=== PATIENT | male | born 1965 | race Caucasian/White ===

== ENCOUNTER → 2019-12-26 16:16 | Outpatient (BNVA) | payer SELFPAY | PROVIDERS: Family Provider Internal Medicine; Visit Provider Family Medicine | DX: E11.9 Type 2 diabetes mellitus without complications (principal); I10 Essential (primary) hypertension; Z68.35 Body mass index [BMI] 35.0-35.9, adult; F17.211 Nicotine dependence, cigarettes, in remission; Z71.89 Other specified counseling | CPT/HCPCS: 36416; 82962 ==

== ENCOUNTER 2021-05-18 09:58 | Outpatient (CLI) | payer OTHER, SELFPAY ==
[2021-05-18 10:37] LABS: Basophils # 0.1 10^3/uL (0.0-0.1); Basophils % 0.9 %; Eosinophils # 0.2 10^3/uL (0.0-0.8); Eosinophils % 2.8 %; Hematocrit 44.9 % (42.0-52.0); Hemoglobin 15.7 g/dL (11.7-16.6); Lymphocytes # 2.2 10^3/uL (0.8-4.8); Lymphocytes % 31.6 %; Mean Corpuscular Hemoglobin 30.8 pg (28.0-34.0); Mean Corpuscular Volume 88.2 fl (80-94); Mean Platelet Volume 9.1 fL (7.4-10.4); Monocytes # 0.5 10^3/uL (0.2-0.9); Monocytes % 6.6 %; Neutrophils # 3.94 10^3/uL (1.8-7.7); Nucleated Red Blood Cells % 0 %; Platelet Count 259 10^3/cmm (130-400); Red Blood Count 5.09 10^6/uL (4.1-5.3); White Blood Count 6.8 10^3/uL (4.0-10.0)
[2021-05-18 10:50] LABS: Estmated Average Glucose 280; Hemoglobin A1C 11.4 % (4.0-6.0)
[2021-05-18 10:54] LABS: Albumin Level 4.2 g/dL (3.5-5.2); Alkaline Phosphatase 66 IU/L (40-130); Blood Urea Nitrogen 19 mg/dL (6-20); Calcium 8.8 mg/dL (8.5-10.5); Carbon Dioxide 20 mmol/L (22-29); Chloride 91 mmol/L (98-107); Chol HDL Ratio 39.27 mg/dL (1.0-5.00); Cholesterol 589 mg/dL (0-200); Globulin 2.6 g/dL (1.3-4.6); Glomerular Filtration Rate 139.9 mL/min (90-130); Glucose 264 mg/dL (65-115); HDL Cholesterol 15 mg/dL (60-100); Osmolality Calculated 279 mOsm/kg (285-295); Sodium 129 mmol/L (136-145); Total Bilirubin 0.3 mg/dL (0.15-1.2); Total Protein 6.8 g/dL (6.6-8.7)
[2021-05-18 11:05] LABS: Anion Gap 22.6 (5-19); Potassium 4.6 mmol/L (3.5-5.1)
[2021-05-18 11:08] LABS: Triglycerides 3921 mg/dL (0-150)
[2021-05-18 11:10] LABS: Vitamin B12 697 pg/mL (232-1245)
[2021-05-18 11:14] LABS: Creatinine Urine, Random 33 mg/dL (39-259); Microalbum Creatinine Ratio Ur 91 mg/dL (0-20); Microalbumin Random Urine 3 ug/dL (0-20)
[2021-05-18 11:22] LABS: LDL Cholesterol Direct 58 mg/dL (0-100)
[2021-05-18 12:20] LABS: Alanine Aminotransferase 20 U/L (0-41)
[2021-05-18 12:28] LABS: Aspartate Amino Transferase 13 U/L (0-40)
== END 2021-05-18 09:59 | disposition home or self-care (01) ==
PROVIDERS: PCP Family Medicine; Visit Provider Family Medicine
DX: Z00.00 Encounter for general adult medical examination without abnormal findings (principal); I10 Essential (primary) hypertension; E11.9 Type 2 diabetes mellitus without complications
CPT/HCPCS: 36415; 80053; 80061; 82044; 82607; 83036; 83721; 85025

== ENCOUNTER 2021-05-28 07:56 | Outpatient (CLI) | payer OTHER, SELFPAY ==
[2021-05-28 09:45] LABS: Follicle Stimulating Hormone 5.8 mIU/mL (1.5-12.4); Luteinizing Hormone 5.4 mIU/mL (1.7-8.6); Prolactin 11.04 ng/mL (4.0-15.2); Prostate Specific Antigen 0.245 ng/mL (0-4)
[2021-05-28 10:14] LABS: Testosterone Total 110.7 ng/dL (193-740)
[2021-05-31 18:32] LABS: Testosterone, Free 48.2 pg/mL (46.0-224.0)
== END 2021-05-28 07:57 | disposition home or self-care (01) ==
LOC: LAB 08:03
PROVIDERS: PCP Family Medicine; Visit Provider Internal Medicine
DX: E11.65 Type 2 diabetes mellitus with hyperglycemia (principal); E78.1 Pure hyperglyceridemia; N52.9 Male erectile dysfunction, unspecified; Z12.5 Encounter for screening for malignant neoplasm of prostate
CPT/HCPCS: 36415; 83001; 83002; 84146; 84153; 84402; 84403

== ENCOUNTER 2021-10-01 16:16 | Outpatient (CLI) | payer OTHER, SELFPAY ==
--- NOTE | 2021-10-01 16:47 | XRR_ITS ---
PROCEDURE INFORMATION: Exam: XR Thoracolumbar Spine Exam date and time: 10/01/2021 4:59 PM Age: 56 years old Clinical indication: Patient HX: Chronic mid back pain no known trauma; Additional info: Thoracolulmbar radiculopathy TECHNIQUE: Imaging protocol: XR of the thoracolumbar spine. Views: 2 views. COMPARISON: CT abdomen pelvis w con* [id number] 04/01/2017 9:45 AM FINDINGS: Bones/joints: AP and lateral radiographs of the lumbosacral spine showing T6-L3 or obtain. Chronic degenerative changes are present in the lower thoracic spine with disc space narrowing and osteophytes. No fracture, dislocation or other acute abnormality. There is no malalignment. Soft tissues: Unremarkable. 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 No acute abnormality.
[2021-10-01 22:50] LABS: Cortisol Random 5.32 ug/dL (2.47-19.5)
[2021-10-01 22:53] LABS: Free T4 Free Thyroxine 1.02 ng/dL (0.82-1.77); Testosterone Total 156.8 ng/dL (193-740)
== END 2021-10-01 16:17 | disposition home or self-care (01) ==
PROVIDERS: Internal Medicine; PCP Family Medicine; Visit Provider Family Medicine
DX: R10.9 Unspecified abdominal pain (principal); N52.9 Male erectile dysfunction, unspecified; E78.1 Pure hyperglyceridemia; Z12.5 Encounter for screening for malignant neoplasm of prostate; M54.15 Radiculopathy, thoracolumbar region
CPT/HCPCS: 72080; 80053; 82533; 83690; 84403; 84439

== ENCOUNTER 2021-10-12 08:25 | Outpatient (CLI) | payer OTHER, SELFPAY ==
[2021-10-12 09:19] LABS: Chol HDL Ratio 10.78 mg/dL (1.0-5.00); Cholesterol 248 mg/dL (0-200); HDL Cholesterol 23 mg/dL (60-100)
[2021-10-12 09:21] LABS: Estmated Average Glucose 272; Hemoglobin A1C 11.1 % (4.0-6.0)
[2021-10-12 09:42] LABS: Triglycerides 1973 mg/dL (0-150)
[2021-10-12 09:56] LABS: LDL Cholesterol Direct 40 mg/dL (0-100)
== END 2021-10-12 08:26 | disposition home or self-care (01) ==
PROVIDERS: PCP Family Medicine; Visit Provider Internal Medicine
DX: E11.65 Type 2 diabetes mellitus with hyperglycemia (principal); E78.1 Pure hyperglyceridemia
CPT/HCPCS: 36415; 80061; 83036; 83721

== ENCOUNTER 2021-11-28 13:41 | Outpatient (CLI) | payer OTHER, SELFPAY ==
--- NOTE | 2021-11-28 13:45 | MR_ITS ---
WS: [id number] MRI THORACIC SPINE WITHOUT CONTRAST TECHNIQUE: Sagittal T1, T2 and STIR imaging. Axial T2 imaging. Noncontrast imaging obtained. CLINICAL INFORMATION: M51.9 - Unspecified thoracic, thoracolumbar and lumbosacr... COMPARISON: None. FINDINGS: Mild thoracic curve. Mild thoracic kyphosis. No acute compression fractures. No high-grade central ca nal stenosis. Cord signal is normal. Adrenal glands are normal. Normal caliber thoracic aorta. Normal GE junction. Disc herniation T1-T2 with slight contact of the thoracic cord. Slight cranial and caudal subligament ous migration of disc material. Shallow central protrusion T2-T3 with slight contact of the thoracic cord. Spinal canal is patent. Additional tiny shallow central protrusions at T5-T6 and T11-T12 without significant central canal st enosis. Moderate facet arthropathy in the lower thoracic spine. Mild bilateral bony foraminal narrowi ng T10-T11, LEFT T11-T12. MR/MR thoracic spin wo con* [id number] IMPRESSION: 1. Mild thoracic kyphosis. Mild thoracic curve. No acute compression fractures . 2. No high-grade central canal stenosis. Cord signal is normal. 3. Moderate facet arthropathy lower thoracic spine. 4. Small disc protrusions T1-T2, T2-T3, T5-T6, and T11-T12. Slight subligament ous migration of disc material at T1-T2. 5. Mild bony foraminal narrowing more prominent at bilateral T10-T11, and LEFT T11-T12.
== END 2021-11-28 13:42 | disposition home or self-care (01) ==
LOC: RAD 13:41
PROVIDERS: PCP Family Medicine; Visit Provider Anesthesiology Pain Medicine
DX: M51.9 Unspecified thoracic, thoracolumbar and lumbosacral intervertebral disc disorder (principal)
CPT/HCPCS: 72146

== ENCOUNTER → 2022-02-21 09:47 | Outpatient (BNVA) | payer OTHER, SELFPAY | PROVIDERS: PCP Family Medicine; Visit Provider Family Medicine | DX: Z51.81 Encounter for therapeutic drug level monitoring (principal); R79.89 Other specified abnormal findings of blood chemistry; Z23 Encounter for immunization; Z12.5 Encounter for screening for malignant neoplasm of prostate; E78.1 Pure hyperglyceridemia; E11.65 Type 2 diabetes mellitus with hyperglycemia; I10 Essential (primary) hypertension | CPT/HCPCS: 80053; 80061; 83036; 83721; 84403; 85025 ==

== ENCOUNTER → 2022-03-10 13:56 | Outpatient (BNVA) | payer OTHER, SELFPAY | PROVIDERS: PCP Family Medicine; Visit Provider Family Medicine | DX: R05.9 Cough, unspecified (principal); J06.9 Acute upper respiratory infection, unspecified; I10 Essential (primary) hypertension | CPT/HCPCS: 87400; 87426 ==

== ENCOUNTER → 2022-06-17 13:12 | Outpatient (BNVA) | payer OTHER, SELFPAY | PROVIDERS: PCP Family Medicine; Visit Provider Family Medicine | DX: R51.9 Headache, unspecified (principal); J06.9 Acute upper respiratory infection, unspecified | CPT/HCPCS: 87426 ==

== ENCOUNTER 2022-07-04 14:03 | Outpatient (CLI) | payer OTHER, SELFPAY ==
--- NOTE | 2022-07-04 14:30 | MR_ITS ---
WS: [id number] MRI BRAIN/orbits WITH AND WITHOUT CONTRAST HISTORY: Abducens nerve palsy, balance problems - likely stroke COMPARISON: None available. TECHNIQUE: Multiplanar imaging performed through the brain with MultiHance ml's IV. Very small diffusion-weighted abnormality involving the RIGHT owens radiata. Suspect subacute stroke . There is no hemorrhage or mass effect. Otherwise mild small vessel ischemic changes throughout whit e matter. No cerebellar stroke. The marquis is negative. No hemorrhage. Ventricles and extra-axial spaces are normal. Clivus and pituitary gland are normal. Visualized posterior fossa and brainstem are also normal. Postcontrast images are negative for masses or vascular malformations. On the postcontrast sequences there is a small amount of enhancement noted in the RIGHT owens radiata extending along the internal capsule. This corresponds to the diffusion-weighted abnormality. Dural venous sinuses are normal. Paranasal sinuses: Well aerated with no significant disease. Mastoid air cells: Normal. Calvarium and scalp: Normal. MR/MR head orbits wo/w* [id number] IMPRESSION: 1. Small diffusion-weighted abnormality without hemorrhage in the RIGHT owens radiata consistent with a subacute infarct. Mild enhancement at the site of th e diffusion abnormality. Recommend follow-up MRI brain in 6-[address] to document resolution of the enhancement. 2. Mild small vessel chronic ischemic disease. 3. No enhancement along the course of the 6th cranial nerve.
[2022-07-04] MEDS: gadobenate dimeglumine 20 mL vial IV (17:24)
== END 2022-07-04 14:04 | disposition home or self-care (01) ==
PROVIDERS: PCP Family Medicine; Visit Provider Family Medicine
DX: H49.20 Sixth [abducent] nerve palsy, unspecified eye (principal); R26.9 Unspecified abnormalities of gait and mobility; I67.82 Cerebral ischemia
CPT/HCPCS: 70543; 70553; 80053; 83036; 84153; 84439; 84443; 85025; A9577

== ENCOUNTER 2022-08-01 15:13 | Outpatient (CLI) | payer OTHER, SELFPAY ==
--- NOTE | 2022-08-01 15:45 | USCV_ITS ---
Humza Juarez Age: 57 Gender: M : 1965 Exam Date: 08/01/2022 15:30 Ordering Phys: Patrick Martinez MD Technologist: Mojgan Shine Exam Location: [facility] – [place] Indication: s/p ischemic stroke BP: 140 / 80 HR: 82 Rhythm: Sinus Technical Quality: Adequate MEASUREMENTS (Male / Female) Normal Values 2D ECHO LV Diastolic Diameter PLAX 4.1 cm 4.2 - 5.9 / 3.9 - 5.3 cm LV Systolic Diameter PLAX 1.8 cm IVS Diastolic Thickness 1.9 cm 0.6 - 1.0 / 0.6 - 0.9 cm IVS Systolic Thickness 2.2 cm LVPW Diastolic Thickness 1.5 cm 0.6 - 1.0 / 0.6 - 0.9 cm LVPW Systolic Thickness 2.6 cm LVOT Diameter 2.2 cm LV Ejection Fraction 2D Teich 64.7 % LV Ejection Fraction MOD 2C 67.3 % LV Ejection Fraction 2C AL 68.7 % LA Diameter 4.0 cm LA Width 3.4 cm LA Height 5.5 cm RA Width 3.9 cm RA Height 4.6 cm Aorta at Sinotubular Diameter 3.0 cm IVC Diameter 1.3 cm M-MODE MV E Point Septal Separation 0.5 cm DOPPLER AV Peak Velocity 151.0 cm/s LVOT Peak Velocity 107.0 cm/s AV Area Cont Eq vti 2.8 cm squared AV Area Cont Eq pk 2.6 cm squared MV Peak Velocity 115.0 cm/s MV Area PHT 3.9 cm squared Mitral E to A Ratio 1.0 MV E' Velocity 57.5 cm/s Mitral E to MV E' Ratio 16.6 Mitral E to LV E' Lateral Ratio 14.6 Mitral E to LV E' Septal Ratio 19.3 TR Peak Velocity 98.7 cm/s TR Peak Gradient 3.9 mmHg Right Atrial Pressure 5.0 mmHg Pulmonary Artery Systolic Pressu 8.9 mmHg PV Peak Velocity 118.0 cm/s RV Acceleration Time 0.1 s RV Ejection Time 0.3 s RV AcT/ET 0.3 FINDINGS Left Ventricle Left ventricle is normal in size. LV systolic function is normal with EF of 55 to 60%. No regional wall motion normalities are seen. Right Ventricle Normal in size and function Right Atrium Normal in size Left Atrium Normal in size Mitral Valve Mild mitral annular calcification. Trace mitral regurgitation. Aortic Valve Structurally normal aortic valve.No significant stenosis or regurgitation. Tricuspid Valve Mild tricuspid regurgitation. Pulmonary artery systolic pressure is normal. Pulmonic Valve Not well visualized Pericardium Normal Aorta Normal in size IVC Appears to be normal CONCLUSIONS LV systolic function is normal with EF of 55-60% Trace mitral regurgitation Mild tricuspid regurgitation No comparison studies are available Kwaku Robledo MD (Electronically Signed) Final Date: 03 August 2022 18:04 S
--- NOTE | 2022-08-01 16:00 | USCV_ITS ---
Humza Juarez Age: 57 Gender: M : 1965 Exam Date: 08/01/2022 15:57 Ordering Phys: Patrick Martinez MD Technologist: Mojgan Shine Exam Location: [facility] – [place] Indication: s/p ischemic stroke Risk Factors: Previous Vascular Surgery: None Right Brachial BP: / Left Brachial BP: / Right Left Velocity (cm/s) Spectral Plaque Velocity (cm/s) Spectral Plaque Syst/Diast Broadening Syst/Diast Broadening 113.60/16.50 Prox CCA 115.70/ 17.10 102.50/12.10 Mid CCA 87.10 / 16.50 102.50/20.90 Distal CCA 101.40/ 16.50 52.80/ 9.30 Prox ICA 52.80 / 9.30 Homo 75.20/ 24.80 Mid ICA 63.90 / 18.70 Homo 85.40/ 24.80 Distal ICA 55.90 / 15.50 118.00 ECA 94.80 Homo 0.75 ICA/CCA 0.55 Antegrade Vertebral Antegrade 47.30/ 9.90 cm/s 38.80/ 12.50 cm/s Tri Subclavian Tri 144.6 114.6 0 0 FINDINGS Comparison: none available. Technically limited exam. No significant elevation of systolic or diastolic velocities. Waveforms are normal. Antegrade vertebral arteries. Mild carotid atherosclerosis. CONCLUSIONS Bilateral ICA stenosis less than 50%. Dr. Tami Solorzano DO (Electronically Signed) Final Date: 04 August 2022 07:44 S
== END 2022-08-01 15:14 | disposition home or self-care (01) ==
PROVIDERS: PCP Family Medicine; Visit Provider Family Medicine
DX: I63.9 Cerebral infarction, unspecified (principal); I65.23 Occlusion and stenosis of bilateral carotid arteries
CPT/HCPCS: 93306; 93880

== ENCOUNTER 2022-08-19 15:33 | Outpatient (RCR) | payer OTHER, SELFPAY | END 2022-08-29 23:59 | disposition home or self-care (01) | LOC: SOT 15:33 | PROVIDERS: PCP Family Medicine; Visit Provider Family Medicine | DX: I63.9 Cerebral infarction, unspecified (principal); R42 Dizziness and giddiness | CPT/HCPCS: 97165 ==

== ENCOUNTER 2022-08-26 15:33 | Outpatient (RCR) | payer OTHER, SELFPAY | END 2022-08-29 23:59 | disposition home or self-care (01) | LOC: SPT 15:33 | PROVIDERS: PCP Family Medicine; Visit Provider Family Medicine | DX: I63.9 Cerebral infarction, unspecified (principal); R42 Dizziness and giddiness | CPT/HCPCS: 97112; 97161 ==

== ENCOUNTER 2022-08-30 06:00 | Outpatient (RCR) | payer OTHER, SELFPAY | END 2022-09-28 23:59 | disposition home or self-care (01) | LOC: SPT 06:00 | PROVIDERS: PCP Family Medicine; Visit Provider Family Medicine | DX: I63.9 Cerebral infarction, unspecified (principal); R42 Dizziness and giddiness | CPT/HCPCS: 97110; 97112 ==

== ENCOUNTER 2022-09-15 10:33 | Outpatient (CLI) | payer OTHER, SELFPAY ==
--- NOTE | 2022-09-15 11:00 | MR_ITS ---
WS: [id number] MRI HEAD WITH CONTRAST TECHNIQUE: Sagittal T1, T2 axial, T2 axial FLAIR, axial susceptibility weighted imaging, axial diffus ion weighted images, and coronal T2 images were obtained. Pre and post-T1 axial and post T1 coronal i mages. ADC and FSPGR images. CLINICAL INFORMATION: Enhancing lesion in right owesn radiata COMPARISON: July 04, 2022 FINDINGS: No evidence of restricted diffusion to suggest acute ischemia. Late subacute to chronic lacunar infar ct in the RIGHT owens radiata with T1 hyperintensity compatible with laminar necrosis. No residual a bnormal enhancement. Expected evolution of the infarct. No new areas of acute ischemia. No hemosiderin on the susceptibly weighted images. Normal posterior fossa. Normal vascular flow voids at the skull base. No extra-axial fluid collections. Paranasal sinuses and mastoid air cells are wel l aerated. Mild symmetric atrophy temporal lobes and hippocampal formations. Normal optic chiasm and pituitary infundibulum. MR/MR head wo/w con [id number] IMPRESSION: 1. Expected evolution of the RIGHT owens radiata lacunar infarct with T1 hype rintensity compatible with laminar necrosis. Previously described enhancement h as resolved. 2. No evidence restricted diffusion to suggest acute ischemia. 3. Mild small vessel changes with mild parenchymal volume loss. 4. No hemosiderin on susceptibly weighted images. 5. Mild symmetric atrophy temporal lobes and hippocampal formations.
[2022-09-15] MEDS: gadobenate dimeglumine 20 mL vial IV (11:42)
== END 2022-09-15 10:34 | disposition home or self-care (01) ==
PROVIDERS: PCP Family Medicine; Visit Provider Family Medicine
DX: I63.9 Cerebral infarction, unspecified (principal)
CPT/HCPCS: 70553; A9577

== ENCOUNTER 2022-09-29 06:00 | Outpatient (RCR) | payer OTHER, SELFPAY | END 2022-10-29 23:59 | disposition home or self-care (01) | LOC: SPT 06:00 | PROVIDERS: PCP Family Medicine; Visit Provider Family Medicine | DX: I63.9 Cerebral infarction, unspecified (principal); R42 Dizziness and giddiness | CPT/HCPCS: 97110; 97112; L1902 ==

== ENCOUNTER 2022-10-30 06:00 | Outpatient (RCR) | payer OTHER, SELFPAY | END 2022-11-28 23:59 | disposition home or self-care (01) | LOC: SPT 06:00 | PROVIDERS: PCP Family Medicine; Visit Provider Family Medicine | DX: I63.9 Cerebral infarction, unspecified (principal); R42 Dizziness and giddiness | CPT/HCPCS: 97110; 97112 ==

== ENCOUNTER 2022-11-29 06:00 | Outpatient (RCR) | payer OTHER, SELFPAY | END 2022-12-04 23:59 | disposition home or self-care (01) | LOC: SPT 06:00 | PROVIDERS: PCP Family Medicine; Visit Provider Family Medicine | DX: I63.9 Cerebral infarction, unspecified (principal); R42 Dizziness and giddiness | CPT/HCPCS: 97110; 97112 ==

== ENCOUNTER → 2022-12-26 07:57 | Outpatient (BNVA) | payer OTHER, SELFPAY | PROVIDERS: PCP Family Medicine; Visit Provider Family Medicine | DX: Z12.5 Encounter for screening for malignant neoplasm of prostate (principal); N52.9 Male erectile dysfunction, unspecified; E11.40 Type 2 diabetes mellitus with diabetic neuropathy, unspecified; E78.1 Pure hyperglyceridemia; E11.65 Type 2 diabetes mellitus with hyperglycemia; R79.89 Other specified abnormal findings of blood chemistry | CPT/HCPCS: 80053; 80061; 83036; 84403 ==

== ENCOUNTER → 2023-03-19 13:31 | Outpatient (BNVA) | payer OTHER, SELFPAY | PROVIDERS: PCP Family Medicine; Visit Provider Podiatrist Foot & Ankle Surgery | DX: S99.921A Unspecified injury of right foot, initial encounter; S92.424A Nondisplaced fracture of distal phalanx of right great toe, initial encounter for closed fracture; E11.65 Type 2 diabetes mellitus with hyperglycemia; Z79.4 Long term (current) use of insulin; Z79.84 Long term (current) use of oral hypoglycemic drugs; X58.XXXA Exposure to other specified factors, initial encounter | CPT/HCPCS: 73630 ==

== ENCOUNTER → 2023-04-01 15:56 | Outpatient (BNVA) | payer OTHER, SELFPAY | PROVIDERS: PCP Family Medicine; Visit Provider Podiatrist Foot & Ankle Surgery | DX: X58.XXXD Exposure to other specified factors, subsequent encounter; E11.65 Type 2 diabetes mellitus with hyperglycemia; Z79.4 Long term (current) use of insulin; Z79.84 Long term (current) use of oral hypoglycemic drugs; S92.424D Nondisplaced fracture of distal phalanx of right great toe, subsequent encounter for fracture with routine healing | CPT/HCPCS: 73630 ==

== ENCOUNTER 2023-09-11 12:26 | Outpatient (CLI) | payer OTHER, SELFPAY ==
--- NOTE | 2023-09-11 12:30 | XR_ITS ---
WS: [id number] Lumbar spine, 3 views, 09/11/2023 Clinical Data: Left hip, lower back pain Comparison: None. Findings: No compression fractures or subluxation is seen. There is degenerative disc narrowing at L5-S1. There are minimal spurs of the L4 and L5 vertebral bodies. The transverse processes and SI joints are nor mal. Impression: 1. Degenerative disc narrowing at L5-S1. 2. Minimal spurs of the L4 and L5 vertebral bodies.
--- NOTE | 2023-09-11 12:30 | XR_ITS ---
WS: [id number] Left hip, AP and frog-leg views, 09/11/2023 Clinical Data: Left hip, lower back pain Comparison: None. Findings: No fractures or dislocations are seen. The left hip shows no erosion, sclerosis, narrowing, fragmenta tion or loss of the normal spherical shape of the femoral head.. The soft tissues are not remarkable. The adjacent pelvis is normal. Impression: Negative left hip. Tonnis classification: grade 0: normal radiographs
== END 2023-09-11 12:27 | disposition home or self-care (01) ==
LOC: RAD 12:27
PROVIDERS: PCP Family Medicine; Visit Provider Family Medicine
DX: M54.16 Radiculopathy, lumbar region (principal); M25.552 Pain in left hip; M51.37 Other intervertebral disc degeneration, lumbosacral region; M46.07 Spinal enthesopathy, lumbosacral region
CPT/HCPCS: 72100; 73502

== ENCOUNTER → 2023-10-15 07:17 | Outpatient (BNVA) | payer OTHER, SELFPAY | PROVIDERS: PCP Family Medicine; Visit Provider Internal Medicine | DX: R79.89 Other specified abnormal findings of blood chemistry (principal); E11.65 Type 2 diabetes mellitus with hyperglycemia; E78.1 Pure hyperglyceridemia; Z51.81 Encounter for therapeutic drug level monitoring; E11.9 Type 2 diabetes mellitus without complications; Z13.220 Encounter for screening for lipoid disorders; E55.9 Vitamin D deficiency, unspecified; E03.9 Hypothyroidism, unspecified; E53.8 Deficiency of other specified B group vitamins | CPT/HCPCS: 80053; 80061; 82306; 82607; 83036; 83721; 84403; 84439; 84443; 85025; G0103 ==

== ENCOUNTER 2024-02-08 16:09 | Outpatient (CLI) | payer OTHER, SELFPAY | END 2024-02-08 16:10 | disposition home or self-care (01) | LOC: SLEEP 16:10 | PROVIDERS: PCP Family Medicine; Visit Provider Family Medicine | DX: G47.33 Obstructive sleep apnea (adult) (pediatric) (principal); G47.36 Sleep related hypoventilation in conditions classified elsewhere | CPT/HCPCS: G0399 ==

== ENCOUNTER → 2024-02-26 07:38 | Outpatient (BNVA) | payer OTHER, SELFPAY | PROVIDERS: PCP Family Medicine; Visit Provider Family Medicine | DX: Z51.81 Encounter for therapeutic drug level monitoring (principal); Z13.220 Encounter for screening for lipoid disorders; E11.9 Type 2 diabetes mellitus without complications; I10 Essential (primary) hypertension; R60.9 Edema, unspecified; E53.8 Deficiency of other specified B group vitamins | CPT/HCPCS: 80053; 80061; 82306; 82607; 83036; 83721; 83735; 83880; 85025 ==

== ENCOUNTER 2024-05-02 06:41 | Outpatient (CLI) | payer OTHER, SELFPAY ==
[2024-05-02 07:16] VITALS: BMI 42.7
--- NOTE | 2024-05-02 07:16 | ECG_ITS ---
[employer] Test Date: 2024-05-02 Pat Name: Humza Juarez Department: Room: Gender: Male Fox Raiser: : 1965 Requested By: Patrick Jackson Order Number: [id number] Alvarado MD: Kwaku Robledo M.D. Interpretive Statements LEXISCAN SESTAMIBI STRESS TEST Procedure: At the baseline, the blood pressure was 153/93 mmHg with a heart rate of 67 bpm. The electrocardiogram showed normal sinus rhythm, normal axis with normal ST and T's. The Lexiscan was infused over a period of 20 seconds. A total of 0.4 mg of Lexiscan was infused. The stress phase was continued for a total of 5 minutes. Heart rate was at the end of stress phase was 69 bpm and a blood pressure of 134/81 mmHg. The EKG at the peak infusion revealed normal sinus rhythm with no significant ST-T wave changes. Sestamibi was injected 20 seconds after the Lexiscan infusion. Blood pressure at the end of recovery phase was 131/77 mmHg with a heart rate of 69 bpm. Conclusion: 1. Normal EKG response to Lexiscan infusion 2. No Lexiscan induced chest pain or cardiac arrhythmia. 3. Normal blood pressure and heart rate response. 4. Sestamibi/sestamibi perfusion scan pending; see separate report. Electronically Signed On 05-04-2024 19:37:44 SHUTTLE THREADER by Kwaku Robledo M.D. [email or web address]
--- NOTE | 2024-05-02 07:17 | NMCV_ITS ---
NM jania perf SPECT r/s* [id number] Humza Juarez Age: 59 Gender: M : 1965 Exam Date: 05/02/2024 07:17 Ordering Phys: Patrick Martinez MD Technologist: ALEJANDRO Amado Exam Location: [facility] Indications: cp STRESS TEST Please see separate stress test report in [facility] for full findings IMAGE PROTOCOL Rest/Stress 1 Lexiscan Day Radiopharmaceutical Dose (mCi) Administration Site Administered by Rest: Tc-99m 11 IV ALEJANDRO Greene Sestamibi Stress:Tc-99m 33 IV ALEJANDRO Greene Sestamibi Rest: 02-May-2024 60 Discovery 630 Stress: 02-May-2024 30 Discovery 630 0.4mg Lexiscan. Supine position only as patient was unable to lay prone. SPECT RESULTS Technical Quality: Good Raw Data Analysis: , Normal Image Corrections: No attenuation or motion correction applied Summed Stress Score: 1 Summed Rest Score: 0 Summed Difference Score: 1 PERFUSION FINDINGS There is small area of partially reversible perfusion defect seen in inferolateral wall. This is consistent with small area of prior infarct with minimal lizzie-infarct ischemia. FUNCTIONAL RESULTS (calculated via Gated SPECT) Stress Image LV EF (%): 68 Stress EDV (mL):137 TID: 1.21 Stress ESV (mL):44 FUNCTIONAL FINDINGS: There is normal left ventricular systolic function. TID ratio is elevated and is 1.21 IMPRESSIONS 1. Small area of prior infarct with minimal lizzie-infarct ischemia seen in the left circumflex artery territory 2. LV systolic function is normal 3. TID ratio is elevated. Kwaku Robledo MD (Electronically Signed) Final Date: 02 May 2024 09:43 S
[2024-05-02] MEDS: regadenoson 0.4 Mg/5 ml Syringe IVP (08:32)
[2024-05-02 08:43] VITALS: BP 131/77; PULSE 69
== END 2024-05-02 06:42 | disposition home or self-care (01) ==
LOC: CDL 06:42
PROVIDERS: PCP Family Medicine; Visit Provider Family Medicine
DX: R07.9 Chest pain, unspecified (principal); R06.02 Shortness of breath
CPT/HCPCS: 36415; 78452; 93017; 96374; A9500; J2785

== ENCOUNTER 2024-06-07 06:28 | Outpatient (CLI) | payer OTHER, SELFPAY ==
--- NOTE | 2024-06-07 06:15 | USCV_ITS ---
Humza Juarez Age: 59 Gender: M : 1965 Exam Date: 06/07/2024 06:41 Ordering Phys: Edy White MD ([email or web address]) Technologist: MIHAI Exam Location: [facility] [place] Indication: SOB BP: 142 / 91 HR: 83 Rhythm: Sinus Technical Quality: Adequate MEASUREMENTS (Male / Female) Normal Values 2D ECHO LV Diastolic Diameter PLAX 4.8 cm 4.2 - 5.9 / 3.9 - 5.3 cm IVS Diastolic Thickness 1.6 cm 0.6 - 1.0 / 0.6 - 0.9 cm IVS Systolic Thickness 2.3 cm LVPW Diastolic Thickness 2.4 cm 0.6 - 1.0 / 0.6 - 0.9 cm LVPW Systolic Thickness 2.5 cm LVOT Diameter 2.0 cm LV Ejection Fraction 2D Teich 66.4 % LV Ejection Fraction MOD 4C 66.1 % LV Ejection Fraction MOD 2C 63.7 % LV Ejection Fraction 2C AL 65.3 % LA Diameter 5.2 cm RA Systolic Volume 4C AL 19.4 ml RA Systolic Volume 4C MOD 19.3 ml LA Sys Volume AL 53.7 cm cubed LA Sys Volume Index AL 17.7 cm cubed/m squared Aorta at Sinotubular Diameter 2.9 cm M-MODE LA Ao Ratio MM 1.2 AV Cusp Separation MM 1.4 cm DOPPLER AV Peak Velocity 158.0 cm/s LVOT Peak Velocity 114.0 cm/s AV Area Cont Eq vti 2.1 cm squared AV Area Cont Eq pk 2.3 cm squared MV Peak Velocity 115.0 cm/s MV Area PHT 2.8 cm squared TR Peak Velocity 125.0 cm/s TR Peak Gradient 6.3 mmHg TR Mean Velocity 101.0 cm/s TR Mean Gradient 4.5 mmHg TR Velocity Time Integral 31.7 cm TV Peak E Velocity 77.0 cm/s PV Peak Velocity 122.0 cm/s RV Ejection Time 0.3 s FINDINGS Left Ventricle Left ventricle is normal in size. LV systolic function is normal with EF of 60 to 65%. No regional wall motion abnormalities are seen. Left ventricular hypertrophy seen. Right Ventricle Normal in size and function Right Atrium Normal in size Left Atrium Normal in size Mitral Valve Structurally normal mitral valve. Trace mitral regurgitation. Aortic Valve Normal aortic valve. No significant stenosis or regurgitation. Tricuspid Valve Insufficient TR jet to calculate RVSP Pulmonic Valve Not well visualized Pericardium Normal Aorta Normal in size IVC Not well visualized. CONCLUSIONS LV systolic function is normal with EF of 60 to 65%. Left ventricular hypertrophy is seen. Trace mitral regurgitation Compared to prior echocardiogram from 2022, no significant changes are seen. Kwaku Robledo MD (Electronically Signed) Final Date: 10 June 2024 12:07 S
== END 2024-06-07 06:29 | disposition home or self-care (01) ==
PROVIDERS: PCP Family Medicine; Visit Provider Internal Medicine Cardiovascular Disease
DX: I51.7 Cardiomegaly (principal); R06.02 Shortness of breath
CPT/HCPCS: 93306

== ENCOUNTER 2024-08-18 09:43 | Outpatient (CLI) | payer OTHER, SELFPAY ==
--- NOTE | 2024-08-18 09:30 | USR_ITS ---
PROCEDURE INFORMATION: Exam: US Bilateral Noninvasive Physiologic Study of the Lower Extremity Arteries, Limited Exam date and time: 08/18/2024 9:47 AM Age: 59 years old Clinical indication: Condition or disease; Peripheral vascular disease; Additional info: Decreased pulses in bilateral feet TECHNIQUE: Imaging protocol: Bilateral Limited bilateral noninvasive physiologic studies of lower extremity arteries. Waveforms were obtained and evaluated. Images were documented and archived. Exam is limited. COMPARISON: CR XR foot RT min 3V* [id number] 04/01/2023 4:03 PM FINDINGS: Ankle-brachial index on the right measures 1.02. Ankle-brachial index on the left is not calculated due to noncompressible vessels. Toe brachial index on the right measures 0.78. Toe brachial index on the left measures 0.76. Waveforms were not assessed in the study. US/CV ankle brachial index [id number] IMPRESSION: 1. Ankle-brachial index of 1.02 on the right, which is within normal limits. 2. Ankle-brachial index on the left is not assessed due to non compressibility of the vessels. 3. Toe brachial index within normal limits bilaterally.
== END 2024-08-18 09:44 | disposition home or self-care (01) ==
LOC: RAD 09:45
PROVIDERS: PCP Family Medicine; Visit Provider Family Medicine
DX: I73.9 Peripheral vascular disease, unspecified (principal); Z00.00 Encounter for general adult medical examination without abnormal findings; E11.40 Type 2 diabetes mellitus with diabetic neuropathy, unspecified; Z12.5 Encounter for screening for malignant neoplasm of prostate; R93.89 Abnormal findings on diagnostic imaging of other specified body structures
CPT/HCPCS: 93922

== ENCOUNTER 2024-09-01 19:57 | Emergency (ER) | payer OTHER, SELFPAY ==
[2024-09-01] VITALS (9 sets, daily range): BP systolic 127–170; BP diastolic 63–94; PULSE 80–95; RESP 14–24; TEMP 36.3; O2SAT 88–99; BMI 39.1
--- NOTE | 2024-09-01 20:08 | XRR_ITS ---
PROCEDURE INFORMATION: Exam: XR Abdomen Exam date and time: 09/01/2024 8:24 PM Age: 59 years old Clinical indication: Abdominal pain; Acute; Additional info: Abd pain TECHNIQUE: Imaging protocol: Radiologic exam of the abdomen. Views: Frontal supine view of the abdomen. 1 View. COMPARISON: CR XR hip LT 2-3V wo/w pel* [id number] 09/11/2023 12:43 PM FINDINGS: Gastrointestinal tract: Large colonic and rectal stool burden. Gaseous distension of transverse colon. Nonobstructive bowel gas pattern. Bones/joints: Unremarkable. XR/XR abdomen 1V* [id number] IMPRESSION: Extensive distal colonic and rectal stool burden, which may be seen with constipation and rectal impaction.
[2024-09-01 20:15] LABS: Glucose Point of Care > 600 mg/dL (70-110)
--- NOTE | 2024-09-01 21:06 | W.ED.RECABL ---
HPI - Recheck/Abnormal Lab/Rx General: Chief Complaint: Recheck/Abnormal Lab/Rx Stated Complaint: v/ clammy severe stomach pain . sudden Time Seen by Provider: 09/01/24 20:42 History of Present Illness: 59-year-old man with a history of uncontrolled type 2 diabetes mellitus, hypertension, obesity, history of a stroke, hyperlipidemia and chronic pain syndrome who presents the emergency room with epigastric abdominal pain, nausea and vomiting. He said he got very clammy and sweaty. He has been vomiting. Upon arrival here he has some diarrhea. No altered mental status. No focal motor deficits. Family states his mother just a couple of days ago. They were concerned he might be having heart attack. Related Data Home Medications ?Medication ?Instructions ?Recorded ?Confirmed cholecalciferol (vitamin D3) 50 50 mcg PO DAILY 05/27/21 08/23/24 mcg (2,000 unit) capsule loratadine 10 mg tablet (Allergy 10 mg PO DAILY 05/27/21 08/23/24 Relief (loratadine)) Previous Rx's ?Medication ?Instructions ?Recorded flash glucose scanning reader #1 ea 03/18/22 (FreeStyle Brittany 2 [place]) aspirin 325 mg tablet,delayed 325 mg PO DAILY #90 tabs 07/07/22 release atorvastatin 40 mg tablet 40 mg PO DAILY #90 tabs 07/18/22 rigid support brace for left ankle #1 ea 01/16/23 Diabetic shoes with 3 sets of #1 ea 02/23/23 insoles Non-articulating AFO to left #1 ea 02/23/23 icosapent ethyl 1 gram capsule 2 g (2 x 1 gram) PO BID #360 caps 04/02/23 (Vascepa) testosterone cypionate 200 mg/mL 100 mg (0.5 mL) IM Q10D 2 months 11/13/23 intramuscular oil #10 mL diazepam 5 mg tablet 5 mg PO ONCE PRN anxiety #1 tab 11/27/23 potassium chloride 10 mEq 10 meq PO BID #60 tabs 12/25/23 tablet,extended release (Klor-Con) cyclobenzaprine 5 mg tablet See Rx Instructions .Route 12/31/23 .COMPLEX #90 tabs atorvastatin 80 mg tablet See Rx Instructions .Route 02/19/24 .COMPLEX #90 tabs fenofibrate 160 mg tablet See Rx Instructions .Route 02/19/24 .COMPLEX #60 tabs flash glucose sensor (FreeStyle #6 kits 02/19/24 Brittany 2 Sensor kit) 2L oxygen via CPAP #1 ea 02/26/24 insulin regular hum U-500 conc 500 See Rx Instructions .Route 03/21/24 unit/mL(3 mL) subcut pen (Humulin .COMPLEX #27 mL R U-500 (Conc) Insulin Kwikpen) metformin 1,000 mg tablet 1,000 mg PO BID #180 tabs 03/22/24 amitriptyline 100 mg tablet 100 mg PO DAILY #30 tabs 04/20/24 amlodipine 2.5 mg tablet 2.5 mg PO BID #60 tabs 04/20/24 hydrochlorothiazide 25 mg tablet 25 mg PO DAILY #90 tabs 04/22/24 mupirocin 2 % topical ointment 1 applic topical BID #15 grams 04/22/24 duloxetine 30 mg capsule,delayed 30 mg PO DAILY #30 caps 06/20/24 release omeprazole 40 mg capsule,delayed 40 mg PO DAILY #30 caps 07/11/24 release furosemide 40 mg tablet 80 mg (2 x 40 mg) PO BID #120 tabs 07/19/24 Auto-titrating CPAP with mask and #1 ea 07/22/24 supplies with 2L O2 via nc semaglutide 0.25 mg or 0.5 mg (2 0.5 mg (0.736 mL) SUBCUT Q7D #3 mL 07/22/24 mg/3 mL) subcutaneous pen injector (Ozempic) tramadol 50 mg tablet 50 mg PO BID PRN pain #30 tabs 08/04/24 allopurinol 300 mg tablet 300 mg PO DAILY #90 tabs 08/18/24 carvedilol 25 mg tablet 25 mg PO BID #180 tabs 08/18/24 ondansetron 8 mg disintegrating 8 mg PO Q6H #14 tabs 09/02/24 tablet Allergies Allergy/AdvReac Type Severity Reaction Status Date / Time Penicillins Allergy Mild ALGY-Rash Verified 05/18/24 15:20 Review of Systems Narrative: Constitutional symptoms: Negative except as documented in HPI. Skin symptoms: Negative except as documented in HPI. Eye symptoms: Negative except as documented in HPI. ENMT symptoms: Negative except as documented in HPI. Respiratory symptoms: Negative except as documented in HPI. Cardiovascular symptoms: Negative except as documented in HPI. Gastrointestinal symptoms: Negative except as documented in HPI. Genitourinary symptoms: Negative except as documented in HPI. Musculoskeletal symptoms: Negative except as documented in HPI. Neurologic symptoms: Negative except as documented in HPI. Psychiatric symptoms: Negative except as documented in HPI. Endocrine symptoms: Negative except as documented in HPI. PFSH ED PFSH: Medical History Obstructive sleep apnea CVA (cerebral vascular accident) Matos Radiata Right - 06/2022 Hypercholesteremia Shingles Hypertension Diabetes mellitus type 2 Surgical History Hx of cataract surgery History of lumbar surgery 03/2024 History of tonsillectomy History of appendectomy History of oral surgery H/O removal of cyst Family History Father Cancer Hypertension Gout Mother Diabetes Hypertension Thyroid disease Social History Smoking and tobacco/nicotine status: never used tobacco/nicotine Second hand smoke exposure: No Alcohol intake: current Alcohol intake frequency: holidays/special occasions only Alcohol type: beer Substance/Drug Use: never Adopted: No Caregiver/support person: No Lives independently: Yes Household members: spouse Housing: House Marital status: Number of children: 2 Highest education level completed: High School Graduate service: No Current occupational status: employed Physical Exam Narrative: EXAM NARRATIVE: General: Alert, no acute distress. Skin: Warm, diaphoretic. Head: Normocephalic, atraumatic. Neck: Supple, trachea midline. Eye: Extraocular movements are intact. Ears, nose, mouth and throat: mucosa moist. Cardiovascular: Regular, Normal peripheral perfusion. Respiratory: Lungs are clear to auscultation, respirations are non-labored, breath sounds are equal, Symmetrical chest wall expansion. Gastrointestinal: Soft, epigastric pain, Non distended Musculoskeletal: Normal ROM, no deformity. Neurological: Alert and oriented, No focal neurological deficit observed. Psychiatric: Cooperative, appropriate mood & affect. Course Vital Signs: Vital signs: Vital Signs Temperature 97.3 F L 09/01/24 19:59 Pulse Rate 96 09/02/24 00:15 Respiratory Rate 22 H 04/04/25 00:15 Blood Pressure 156/90 09/02/24 00:15 Pulse Oximetry 90 09/02/24 00:15 Oxygen Delivery Me thod Room Air 09/01/24 19:59 MDM - Recheck/Abnormal Lab/Rx Medical Decision Making Medical decision making: Differential diagnosis for this patient with nausea and vomiting including but not limited to and based on the above HPI, review of systems and physical exam: Urinary tract infection. Appendicitis. Cholecystitis. Colitis. small bowel obstruction. crohn's flare. pancreatitis. gastritis. peptic ulcer. cyclic vomiting. Viral illness. Influenza. COVID. Orders placed to evaluate differential diagnosis based on the above differential, HPI and physical exam Lab Review: Laboratory results were reviewed and interpreted by myself the emergency room physician. No leukocytosis. No anemia. Blood sugars 604 initially. Potassium is mildly elevated at 5.2. BUN and creatinine are up over his baseline at 31.9. Most recent his creatinine was 1.7. Serial troponins are slightly elevated but come down. I think this is related to his renal insufficiency and then after he received fluids the troponin level came down. Flu COVID and RSV are negative. Lipase is negative. Abdominal x-ray: No signs of obstruction. Massive stool burden in the colon. However while he is been here he is had extensive diarrhea so likely this has since resolved. This was reviewed and interpreted by myself the emergency room physician. I also reviewed the radiology report. I reviewed the patient's medical record. Reexamination: Patient says he feels much improved. Sugar is slowly coming down. No ketosis. No altered mental status. He says he has not been taking his insulin this week because he has been grieving. Assessment and plan: Hyperglycemia Dehydration Acute renal insufficiency Medical noncompliance Diarrhea Viral gastroenteritis ?10 units insulin and a liter of fluids. Sugar still in the 500s so 20 units of insulin and another 500 mL of fluid being given prior to discharge. - Discharged home - Discussed plan with patient. Answered any questions. - Evaluation and treatment of this problem were appropriate in the emergency setting. Lab Data 09/01/24 21:28 09/01/24 23:18 Radiology Impressions Abdomen X-Ray 09/01/24 20:08 IMPRESSION: Extensive distal colonic and rectal stool burden, which may be seen with constipation and rectal impaction. Laboratory Results WBC 7.20 10^3/uL (3.29-11.43) 09/01/24 21: RBC 4.81 10^6/uL (3.85-5.65) 09/01/24 21: Hgb 15.30 g/dL (11.27-16.99) 09/01/24 21: Hct 41.9 % (37-53) 09/01/24 21: MCV 87.1 fl (82-101) 09/01/24 21: MCH 31.8 pg (27-33) 09/01/24 21: MCHC 36.5 g/dL (30-55) 09/01/24 21: RDW 14.3 % (12.1-15.1) 09/01/24: Plt Count 325 10^3/cmm (157-399) 09/01/24 21: MPV 9.4 fL (7.4-10.4) 09/01/24 21: Neut % (Auto) 90.2 % 09/01/24: Lymph % (Auto) 6.7 % 09/01/24: Jewell % (Auto) 1.7 % 09/01/24: Eos % (Auto) 0.3 % 09/01/24: Baso % (Auto) 0.3 % 09/01/24: Neut # (Auto) 6.50 10^3/uL (1.8-7.7) 09/01/24: Lymph # (Auto) 0.5 10^3/uL (0.8-4.8) L 09/01/24: Jewell # (Auto) 0.1 10^3/uL (0.2-0.9) L 09/01/24: Eos # (Auto) 0.0 10^3/uL (0.0-0.8) 09/01/24: Baso # (Auto) 0.0 10^3/uL (0.0-0.1) 09/01/24: Nucleated RBC % (auto) 0 % 09/01/24: Nucleated RBCs # 0.0 /100WBC 09/01/24 21: Specimen Type Arterial 09/01/24 21:38 ABG pH 7.33 (7.35-7.45) L 09/01/24 21:38 ABG pCO2 40.1 mmHg (35-45) 09/01/24 21:38 ABG pO2 74.4 mmHg (80.0-100.0) L 09/01/24 21:38 ABG PO2/FiO2 Ratio 354 09/01/24 21:38 ABG HCO3 20.9 mmol/L (22-26) L 09/01/24 21:38 ABG O2 Saturation 93.1 09/01/24 21:38 ABG Base Excess -4.7 mmol/L (-2.0-2.0) L 09/01/24 21:38 Sage Test Pos 09/01/24 21:38 A-a O2 Gradient 3.3 mmHg (5-10) L 09/01/24 21:38 Hematocrit 45.1 % (42-52) 09/01/24 21:38 Hgb O2 Saturation 90.6 % (95-100) L 09/01/24 21:38 Carboxyhemoglobin 0.4 %THgb (0.4-20.1) 09/01/24 21:38 Methemoglobin 2.2 % (0.4-1.5) H 09/01/24 21:38 Total Hemoglobin 14.7 g/dL (14-18) 09/01/24 21:38 Sodium 133.0 mmol/L (131-143) 09/01/24 21:38 Potassium 4.1 mmol/L (3.5-5.0) 09/01/24 21:38 Glucose 644.0 mg/dL (70-115) H 09/01/24 21:38 Ionized Calcium 1.3 mmol/L (1.1-1.4) 09/01/24 21:38 O2 Delivery Device Room air 09/01/24 21:38 FiO2 21.0 % 09/01/24 21:38 [employer] Operator ID [email or web address] 09/01/24 21:38 Sodium 143 mmol/L (136-145) 09/01/24 23:18 Potassium 5.2 mmol/L (3.5-5.1) H 09/01/24 23:18 Chloride 103 mmol/L (98-107) 09/01/24 23:18 Carbon Dioxide 22 mmol/L (22-29) 09/01/24 23:18 Anion Gap 23.2 (5-19) H 09/01/24 23:18 BUN 30 mg/dL (6-20) H 09/01/24 23:18 Creatinine 1.9 mg/dL (0.7-1.2) H 09/01/24 23:18 GFR Calculation 36.6 mL/min (90-130) L 09/01/24 23:18 Glucose 604 mg/dL (65-115) H* 09/01/24 23:18 POC Glucose 597 mg/dL (70-110) H* 09/02/24 00:43 Calculated Osmolality 330 mOsm/kg (285-295) H 09/01/24 23:18 Lactic Acid 2.1 mmol/L (0.5-2.2) 09/01/24 21:28 Calcium 9.2 mg/dL (8.5-10.5) 09/01/24 23:18 Total Bilirubin 0.2 mg/dL (0.15-1.2) 09/01/24 23:18 AST 30 U/L (0-40) 09/01/24 23:18 ALT 47 U/L (0-41) H 09/01/24 23:18 Alkaline Phosphatase 94 U/L (40-130) 09/01/24 23:18 Troponin T Baseline 50 ng/L (0-15) H 09/01/24 21:28 Troponin T 120 Minute 39.88 ng/L (0-15) H 09/01/24 23:18 Delta Troponin T -10.12 ABS# (0-10) L 09/01/24 23:18 C-Reactive Protein 4.9 mg/L (0.0-4.9) 09/01/24 23:18 Total Protein 7.4 g/dL (6.6-8.7) 09/01/24 23:18 Albumin 3.9 g/dL (3.5-5.2) 09/01/24 23:18 Globulin 3.5 g/dL (1.3-4.6) 09/01/24 23:18 Lipase 47 U/L (13-60) 09/01/24 23:18 Ethyl Alcohol < 10 mg/dL (0-10) 09/01/24 23:18 Serum Ketones Negative (Negative) 09/01/24 23:18 Influenza A (PCR) Negative (Negative) 09/01/24 21:19 Influenza Type B (PCR) Negative (Negative) 09/01/24 21:19 RSV (PCR) Negative (Negative) 09/01/24 21:19 SARS-CoV-2 (PCR) Negative (Negative) 09/01/24 21:19 All radiology interpretation(s) finalized by discharge Discharge Plan Discharge Patient Disposition: Home Clinical Impression: Viral gastroenteritis, Hyperglycemia, Renal insufficiency, Dehydration Condition: Stable Prescriptions: New ondansetron 8 mg tablet,disintegrating 8 mg PO Q6H Qty: 14 0RF Rx Instructions: Take 1/2-1 tab every 6 hours as needed for nausea and vomiting No Action cholecalciferol (vitamin D3) 50 mcg (2,000 unit) capsule 50 mcg PO DAILY loratadine [Allergy Relief (loratadine)] 10 mg tablet 10 mg PO DAILY atorvastatin 40 mg tablet 40 mg PO DAILY Qty: 90 3RF hydrochlorothiazide 25 mg tablet 25 mg PO DAILY Qty: 90 3RF mupirocin 2 % ointment 1 applic topical BID Qty: 15 0RF tramadol 50 mg tablet 50 mg PO BID PRN (Reason: pain) Qty: 30 0RF (DME) Diabetic shoes with 3 sets of insoles See Rx Instructions .Route .MEDSUPPLY Qty: 1 0RF Rx Instructions: As directed by [facility] (DME) Non-articulating AFO to left See Rx Instructions .Route .MEDSUPPLY Qty: 1 0RF Rx Instructions: As directed by [facility] diazepam 5 mg tablet 5 mg PO ONCE PRN (Reason: anxiety) Qty: 1 0RF potassium chloride [Klor-Con 10] 10 mEq tablet extended release 10 meq PO BID Qty: 60 6RF (DME) 2L oxygen via CPAP See Rx Instructions .Route .MEDSUPPLY Qty: 1 0RF Rx Instructions: As directed Ozempic 0.25 mg or 0.5 mg (2 mg/3 mL) pen injector 0.5 mg SUBCUT Q7D Qty: 3 2RF Rx Instructions: Inject 0.5mg Q7 days SQ (DME) Auto-titrating CPAP with mask and supplies with 2L O2 via nc See Rx Instructions .ROUTE .MEDSUPPLY Qty: 1 0RF Rx Instructions: Use while sleeping at least 4 hours per day. Settings: 6-16 cm H2O (DME) FreeStyle Brittany 2 [place] Misc See Rx Instructions .Route Qty: 1 0RF Rx Instructions: As directed aspirin 325 mg tablet,delayed release (DR/EC) 325 mg PO DAILY Qty: 90 1RF (DME) rigid support brace for left ankle See Rx Instructions .Route .MEDSUPPLY Qty: 1 0RF Rx Instructions: As directed - Use while ambulating icosapent ethyl [Vascepa] 1 gram capsule 2 g PO BID Qty: 360 3RF Rx Instructions: Take two capsules by mouth twice a day.f testosterone cypionate 200 mg/mL oil 100 mg IM Q10D 60 Days Qty: 10 0RF cyclobenzaprine 5 mg tablet See Rx Instructions .ROUTE .COMPLEX Qty: 90 0RF Dose Instruction: TAKE ONE TABLET BY MOUTH THREE TIMES DAILY NEEDED FOR MUSCLE SPASMS Rx Instructions: TAKE ONE TABLET BY MOUTH THREE TIMES DAILY NEEDED FOR MUSCLE SPASMS (DME) FreeStyle Brittany 2 Sensor Kit See Rx Instructions .ROUTE .COMPLEX Qty: 6 0RF Dose Instruction: USE DIRECTED Rx Instructions: USE DIRECTED fenofibrate 160 mg tablet See Rx Instructions .ROUTE .COMPLEX Qty: 60 0RF Dose Instruction: TAKE ONE TABLET BY MOUTH EVERY DAY Rx Instructions: TAKE ONE TABLET BY MOUTH EVERY DAY atorvastatin 80 mg tablet See Rx Instructions .ROUTE .COMPLEX Qty: 90 0RF Dose Instruction: TAKE ONE TABLET BY MOUTH DAILY Rx Instructions: TAKE ONE TABLET BY MOUTH DAILY Humulin R U-500 (Conc) Kwikpen 500 unit/mL (3 mL) insulin pen See Rx Instructions .ROUTE .COMPLEX Qty: 27 1RF Dose Instruction: INJECT 150 UNITS SUBCUTANEOUSLY THREE TIMES DAILY; BEFORE meals Rx Instructions: INJECT 150 UNITS SUBCUTANEOUSLY THREE TIMES DAILY; BEFORE meals metformin 1,000 mg tablet 1,000 mg PO BID Qty: 180 3RF amitriptyline 100 mg tablet 100 mg PO DAILY Qty: 30 6RF amlodipine 2.5 mg tablet 2.5 mg PO BID Qty: 60 6RF duloxetine 30 mg capsule,delayed release(DR/EC) 30 mg PO DAILY Qty: 30 6RF omeprazole 40 mg capsule,delayed release(DR/EC) 40 mg PO DAILY Qty: 30 6RF furosemide 40 mg tablet 80 mg PO BID Qty: 120 6RF Rx Instructions: Take two tabs PO BID. carvedilol 25 mg tablet 25 mg PO BID Qty: 180 3RF Rx Instructions: must administer with a meal/food allopurinol 300 mg tablet 300 mg PO DAILY Qty: 90 3RF Discharge Orders: Discharge ED (Routine); Ordered 09/02/24 Ordered By: Penny Pierce Referrals: Patrick Martinez MD [Primary Care Provider] - Discharge Diet: Usual diet Discharge Activity: Increase activity as tolerated Patient Instructions: Gastroenteritis (ED), Diabetic Hyperglycemia (ED), Opioid Safety, Pain Management Activity Restrictions/Additional Instructions: Thank you for choosing [facility] for your healthcare needs today. Please realize this is an emergency room and that we are providing you with a medical screening exam and this may not be complete and all inclusive of all the testing and or work up that you may need to determine your ailment or severity of your illness. You have been screened and evaluated and felt safe for discharge. Health conditions do change or evolve sometimes and as such it is important that you follow up with your Primary Doctor to be re checked, 3-5 days is a general good time frame for follow up. 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
[2024-09-01 21:40] LABS: Basophils % 0.3 %; Eosinophils % 0.3 %; Hematocrit 41.9 % (37-53); Lymphocytes # 0.5 10^3/uL (0.8-4.8); Lymphocytes % 6.7 %; Mean Corpuscular HGB Conc 36.5 g/dL (30-55); Mean Corpuscular Hemoglobin 31.8 pg (27-33); Mean Corpuscular Volume 87.1 fl (82-101); Mean Platelet Volume 9.4 fL (7.4-10.4); Monocytes # 0.1 10^3/uL (0.2-0.9); Monocytes % 1.7 %; Neutrophils % 90.2 %; Nucleated Red Blood Cells % 0 %; Platelet Count 325 10^3/cmm (157-399); Red Blood Count 4.81 10^6/uL (3.85-5.65); Red Cell Distribution Width 14.3 % (12.1-15.1)
[2024-09-01 21:50] LABS: ABG PCO2 40.1 mmHg (35-45); ABG PH Result 7.33 (7.35-7.45); Alveolar-Arterial Oxygen Gradi 3.3 mmHg (5-10); Arterial Blood Gas Hematocrit 45.1 % (42-52); Base Excess ABG -4.7 mmol/L (-2.0-2.0); Blood Gas Allen Test Pos; Blood Gas Operator Identificat gerca; Blood Gas Sample Type Arterial; Carboxyhemoglobin 0.4 %THgb (0.4-20.1); HCO3 ABG 20.9 mmol/L (22-26); HGB O2 Sat 90.6 % (95-100); Ionized Calcium Level - ABG 1.3 mmol/L (1.1-1.4); Methemoglobin 2.2 % (0.4-1.5); Oxygen Device ROOM AIR; Oxygen Saturation ABG 93.1; PO2 ABG 74.4 mmHg (80.0-100.0); PO2 FiO2 Ratio Arterial Blood 354; Potassium Level - ABG 4.1 mmol/L (3.5-5.0); Total Hemoglobin 14.7 g/dL (14-18)
--- NOTE | 2024-09-01 21:53 | ECG_ITS ---
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 Measurements Intervals [place] Rate: 85 P: 32 CA: 180 QRS: 27 QRSD: 90 T: 28 QT: 375 QTc: 446 Interpretive Statements SINUS RHYTHM POSSIBLE LEFT ATRIAL ENLARGEMENT [-0.1mV P-WAVE IN V1/V2] No previous ECG available for comparison Electronically Signed On 09-03-2024 18:19:47 CDT by Kwaku Robledo M.D. [email or web address]
[2024-09-01] MEDS: sodium chloride 0.9% 1,000 ML 999 ML IV (21:54)
[2024-09-01] MEDS: insulin regular-human 100 units/1 mL 10 UNIT IVP (21:55)
[2024-09-01 21:58] LABS: Glucose Point of Care > 600 mg/dL (70-110)
[2024-09-01] MEDS: ondansetron 2 mg/ML SDV 2 mL 8 MG IVP (21:58)
[2024-09-01 22:13] LABS: Troponin(5th) Baseline 50 ng/L (0-15)
[2024-09-01 22:16] LABS: Lactic Sepsis W/Reflex 2.1 mmol/L (0.5-2.2)
[2024-09-01 22:33] LABS: Influenza A NEGATIVE (Negative); Influenza B NEGATIVE (Negative); Respiratory Syncytial Virus Ce NEGATIVE (Negative); SARS-CoV-2 PCR NEGATIVE (Negative)
[2024-09-01 23:01] LABS: Glucose Point of Care 573 mg/dL (70-110)
--- NOTE | 2024-09-01 23:08 | ECG_ITS ---
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
[2024-09-01 23:24] LABS: Reflex Lactate Order REFLEX LACTIC ORDERD
[2024-09-01 23:46] LABS: Ketone (Acetest) Serum Negative (Negative)
[2024-09-01 23:50] LABS: Troponin 5 2HR 39.88 ng/L (0-15)
[2024-09-01 23:59] LABS: Troponin 5 2HR Delta -10.12 ABS# (0-10)
[2024-09-02] VITALS (9 sets, daily range): BP systolic 103–156; BP diastolic 66–90; PULSE 91–97; RESP 18–24; O2SAT 90–96
[2024-09-02 00:27] LABS: Albumin Level 3.9 g/dL (3.5-5.2); Alkaline Phosphatase 94 U/L (40-130); Blood Urea Nitrogen 30 mg/dL (6-20); C Reactive Protein 4.9 mg/L (0.0-4.9); Calcium 9.2 mg/dL (8.5-10.5); Carbon Dioxide 22 mmol/L (22-29); Chloride 103 mmol/L (98-107); Globulin 3.5 g/dL (1.3-4.6); Glomerular Filtration Rate 36.6 mL/min (90-130); Lipase 47 U/L (13-60); Osmolality Calculated 330 mOsm/kg (285-295); Sodium 143 mmol/L (136-145); Total Bilirubin 0.2 mg/dL (0.15-1.2); Total Protein 7.4 g/dL (6.6-8.7)
[2024-09-02 00:41] LABS: Alcohol Level < 10 mg/dL (0-10); Creatinine Clr Calc Pharmacy 67.9341
[2024-09-02 00:42] LABS: Anion Gap 23.2 (5-19); Aspartate Amino Transferase 30 U/L (0-40); Potassium 5.2 mmol/L (3.5-5.1)
[2024-09-02 00:43] LABS: Alanine Aminotransferase 47 U/L (0-41)
[2024-09-02 00:44] LABS: Glucose 604 mg/dL (65-115)
[2024-09-02 00:48] LABS: Glucose Point of Care 597 mg/dL (70-110)
[2024-09-02] MEDS: sodium chloride 0.9% 500 ML 999 ML IV (00:57)
[2024-09-02] MEDS: insulin regular-human 100 units/1 mL 22 UNIT IVP (00:58)
[2024-09-02 01:13] LABS: Bacteria Urine None Seen /hpf; Hyaline Casts Urine 1.65 /lpf; Squamous Epithelial Cell Urine 0-5 /hpf (0-5)
[2024-09-02 01:17] LABS: Amphetamines Screen Urine Negative (Negative); Barbiturates Screen Urine Negative (Negative); Benzodiazepines Screen Urine Negative (Negative); Cocaine Screen Urine Negative (Negative); Opiate Screen Urine Negative (Negative); PCP Screen Urine Negative (Negative); THC Screen Urine Negative (Negative)
[2024-09-02 01:29] LABS: Glucose Urine UA 4+ (Normal); Protein Urine 2+ (Negative); Specific Gravity, Urine 1.005 (1.005-1.030); Urine Appearance Clear (CLEAR); Urine Color Yellow (Yellow); pH Urine 5 (5-7)
[2024-09-02 01:30] LABS: Bilirubin Urine Neg (Negative); Blood Urine 2+ (Negative); Ketones Urine Negative (Negative); Leukocyte Esterase Urine Trace (Negative); Nitrate Urine Negative (Negative); Urobilinogen Urine Neg (Negative)
[2024-09-02 01:52] LABS: Glucose Point of Care 526 mg/dL (70-110)
== END 2024-09-02 02:16 | disposition home or self-care (01) ==
PROVIDERS: Emergency Provider Emergency Medicine; PCP Family Medicine
DX: A08.4 Viral intestinal infection, unspecified (principal); E11.65 Type 2 diabetes mellitus with hyperglycemia; N28.9 Disorder of kidney and ureter, unspecified; E86.0 Dehydration; Z11.52 Encounter for screening for COVID-19; Z79.82 Long term (current) use of aspirin; Z79.84 Long term (current) use of oral hypoglycemic drugs; I10 Essential (primary) hypertension; Z86.73 Personal history of transient ischemic attack (TIA), and cerebral infarction without residual deficits
CPT/HCPCS: 36415; 36416; 36600; 74018; 80051; 80053; 80306; 80307; 81001; 82009; 82330; 82805; 82962; 83605; 83690; 84484; 85025; 86140; 87040; 87637; 93005; 96361; 96374; 96375; 96376; 99285; J1815; J2405; J7030; J7040

== ENCOUNTER 2024-09-03 03:56 | Emergency (ER) | payer OTHER, SELFPAY ==
[2024-09-03] VITALS (8 sets, daily range): BP systolic 104–178; BP diastolic 76–109; PULSE 58–75; RESP 17–20; TEMP 36.8; O2SAT 90–100; BMI 40.3
--- NOTE | 2024-09-03 04:03 | W.ED.RECABL ---
Documented by User: Yung Cortes DO 09/03/24 05:54 HPI - Recheck/Abnormal Lab/Rx General: Chief Complaint: Recheck/Abnormal Lab/Rx Stated Complaint: LOW BLOOD SUGAR Time Seen by Provider: 09/03/24 04:08 History of Present Illness: Patient arrived by EMS with complaints of low blood sugar. Patient's blood sugars approximately 41 EMS arrived there. They gave him glucagon which did not elicit any response. They tried IVs x 3 with no success. They ended putting a IO in his right mancuso. They gave him 200 mL of D10 with blood sugar improved now he is alert oriented coherent. Patient was in [facility] ER last night for high blood sugar. Patient said he normally somewhat controlled but never really ever goes low. Patient said he was not feeling too good all day yesterday only ate some chicken broth and took his normal dose of insulin. Related Data Home Medications ?Medication ?Instructions ?Recorded ?Confirmed cholecalciferol (vitamin D3) 50 50 mcg PO DAILY 05/27/21 09/03/24 mcg (2,000 unit) capsule loratadine 10 mg tablet (Allergy 10 mg PO DAILY 05/27/21 09/03/24 Relief (loratadine)) Previous Rx's ?Medication ?Instructions ?Recorded flash glucose scanning reader #1 ea 03/18/22 (FreeStyle Brittany 2 [place]) aspirin 325 mg tablet,delayed 325 mg PO DAILY #90 tabs 07/07/22 release rigid support brace for left ankle #1 ea 01/16/23 Diabetic shoes with 3 sets of #1 ea 02/23/23 insoles Non-articulating AFO to left #1 ea 02/23/23 icosapent ethyl 1 gram capsule 2 g (2 x 1 gram) PO BID #360 caps 04/02/23 (Vascepa) potassium chloride 10 mEq 10 meq PO BID #60 tabs 12/25/23 tablet,extended release (Klor-Con) cyclobenzaprine 5 mg tablet See Rx Instructions .Route 12/31/23 .COMPLEX #90 tabs atorvastatin 80 mg tablet See Rx Instructions .Route 02/19/24 .COMPLEX #90 tabs fenofibrate 160 mg tablet See Rx Instructions .Route 02/19/24 .COMPLEX #60 tabs flash glucose sensor (FreeStyle #6 kits 02/19/24 Brittany 2 Sensor kit) 2L oxygen via CPAP #1 ea 02/26/24 insulin regular hum U-500 conc 500 See Rx Instructions .Route 03/21/24 unit/mL(3 mL) subcut pen (Humulin .COMPLEX #27 mL R U-500 (Conc) Insulin Kwikpen) metformin 1,000 mg tablet 1,000 mg PO BID #180 tabs 03/22/24 amitriptyline 100 mg tablet 100 mg PO DAILY #30 tabs 04/20/24 amlodipine 2.5 mg tablet 2.5 mg PO BID #60 tabs 04/20/24 hydrochlorothiazide 25 mg tablet 25 mg PO DAILY #90 tabs 04/22/24 duloxetine 30 mg capsule,delayed 30 mg PO DAILY #30 caps 06/20/24 release omeprazole 40 mg capsule,delayed 40 mg PO DAILY #30 caps 07/11/24 release furosemide 40 mg tablet 80 mg (2 x 40 mg) PO BID #120 tabs 07/19/24 Auto-titrating CPAP with mask and #1 ea 07/22/24 supplies with 2L O2 via nc tramadol 50 mg tablet 50 mg PO BID PRN pain #30 tabs 08/04/24 allopurinol 300 mg tablet 300 mg PO DAILY #90 tabs 08/18/24 carvedilol 25 mg tablet 25 mg PO BID #180 tabs 08/18/24 ondansetron 8 mg disintegrating 8 mg PO Q6H #14 tabs 09/02/24 tablet ondansetron 4 mg disintegrating 4 mg PO Q6H PRN nausea and 09/03/24 tablet vomiting #20 tabs oxycodone 5 mg tablet 5 mg PO Q6H PRN pain #20 tabs 09/03/24 Allergies Allergy/AdvReac Type Severity Reaction Status Date / Time Penicillins Allergy Mild ALGY-Rash Verified 05/18/24 15:20 Review of Systems General: Reports: 10 or more systems reviewed and unremarkable except in HPI and below PFSH ED PFSH: Medical History Obstructive sleep apnea CVA (cerebral vascular accident) Matos Radiata Right - 06/2022 Hypercholesteremia Shingles Hypertension Diabetes mellitus type 2 Surgical History Hx of cataract surgery History of lumbar surgery 03/2024 History of tonsillectomy History of appendectomy History of oral surgery H/O removal of cyst Family History Father Cancer Hypertension Gout Mother Diabetes Hypertension Thyroid disease Social History Smoking and tobacco/nicotine status: never used tobacco/nicotine Second hand smoke exposure: No Alcohol intake: current Alcohol intake frequency: holidays/special occasions only Alcohol type: beer Substance/Drug Use: never Adopted: No Caregiver/support person: No Lives independently: Yes Household members: spouse Housing: House Marital status: Number of children: 2 Highest education level completed: High School Graduate service: No Current occupational status: employed Physical Exam Const: COMMON NORMALS: no acute distress, average body habitus, patient oriented x3, no limitations, healthy appearing, alert and well nourished HENMT: COMMON NORMALS: normocephalic, atraumatic, hearing grossly normal bilaterally, external ears normal, Normal external nose present, moist oral mucous membranes and oropharynx normal HEAD & SCALP: normocephalic and atraumatic NOSE: Normal external nose present EXTERNAL EAR: Yes external ears normal Neck/C-Spine: COMMON NORMALS: no JVD Chest: COMMONS NORMALS: normal inspection of the chest and normal palpation of entire chest wall Resp: COMMON NORMALS: normal respiratory effort, No retractions, No use of accessory muscles and clear to auscultation bilaterally AUSCULTATION: clear to auscultation bilaterally Cardio: COMMON NORMALS: no JVD, regular rate, regular rhythm, S1 normal heart sound present, S2 normal heart sound present, No gallops present (Cardio), No clicks present (Cardio), No murmurs present (Cardio) and No rub (Cardio) RATE: regular rate RHYTHM: regular rhythm HEART SOUNDS: S1 normal heart sound present and S2 normal heart sound present GI: COMMON NORMALS: Normal to inspection, nondistended, normoactive bowel sounds present, Soft to palpation, non-tender and No hepatosplenomegaly present PALPATION: Yes Soft to palpation and Yes No hepatosplenomegaly present Neuro: COMMON NORMALS: patient oriented x3 SENSORIUM/ORIENTATION: Yes alert Course Vital Signs: Vital signs: Vital Signs Temperature 98.2 F 09/03/24 04:03 Pulse Rate 75 04/05/25 11:33 Respiratory Rate 17 09/03/24 04:12 Blood Pressure 171/109 09/03/24 11:33 Pulse Oximetry 100 09/03/24 11:33 Oxygen Delivery Me thod Room Air 09/03/24 06:22 MDM - Recheck/Abnormal Lab/Rx Medical Decision Making Lab work was obtained which was improved from previous time as far as creatinine. Patient ate and drink while he is here we had serial Accu-Cheks which were acceptable. Patient be discharged home. Medical Records I reviewed the patient's medical records. Lab Data I reviewed the patient's lab results. 09/03/24 05:24 09/03/24 05:[address] 09/03/24 06:25 IMPRESSION: No acute intracranial abnormality. Laboratory Results WBC 13.63 10^3/uL (3.29-11.43) H 09/03/24 05:24 RBC 4.29 10^6/uL (3.85-5.65) 09/03/24 05:24 Hgb 12.60 g/dL (11.27-16.99) 09/03/24 05:24 Hct 38.5 % (37-53) 09/03/24 05:24 MCV 89.7 fl (82-101) 09/03/24 05:24 MCH 29.4 pg (27-33) 09/03/24 05:24 MCHC 32.7 g/dL (30-55) 09/03/24 05:24 RDW 14.6 % (12.1-15.1) 09/03/24 05:24 Plt Count 249 10^3/cmm (157-399) 09/03/24 05:24 MPV 9.3 fL (7.4-10.4) 09/03/24 05:24 Neut % (Auto) 77.6 % 09/03/24 05:24 Lymph % (Auto) 12.8 % 09/03/24 05:24 Casey % (Auto) 6.4 % 09/03/24 05:24 Eos % (Auto) 2.3 % 09/03/24 05:24 Baso % (Auto) 0.3 % 09/03/24 05:24 Neut # (Auto) 10.58 10^3/uL (1.8-7.7) H 09/03/24 05:24 Lymph # (Auto) 1.8 10^3/uL (0.8-4.8) 09/03/24 05:24 Casey # (Auto) 0.9 10^3/uL (0.2-0.9) 09/03/24 05:24 Eos # (Auto) 0.3 10^3/uL (0.0-0.8) 09/03/24 05:24 Baso # (Auto) 0.0 10^3/uL (0.0-0.1) 09/03/24 05:24 Nucleated RBC % (auto) 0 % 09/03/24 05:24 Nucleated RBCs # 0.0 /100WBC 09/03/24 05:24 Sodium 131 mmol/L (136-145) L 09/03/24 05:24 Potassium 3.4 mmol/L (3.5-5.1) L 09/03/24 05:24 Chloride 99 mmol/L (98-107) 09/03/24 05:24 Carbon Dioxide 20 mmol/L (22-29) L 09/03/24 05:24 Anion Gap 15.4 (5-19) 09/03/24 05:24 BUN 28 mg/dL (6-20) H 09/03/24 05:24 Creatinine 1.4 mg/dL (0.7-1.2) H 09/03/24 05:24 GFR Calculation 52.1 mL/min (90-130) L 09/03/24 05:24 Glucose 106 mg/dL (65-115) 09/03/24 05:24 Calculated Osmolality 278 mOsm/kg (285-295) L 09/03/24 05:24 Calcium 8.4 mg/dL (8.5-10.5) L 09/03/24 05:24 Total Bilirubin 0.2 mg/dL (0.15-1.2) 09/03/24 05:24 AST 27 U/L (0-40) 09/03/24 05:24 ALT 42 U/L (0-41) H 09/03/24 05:24 Alkaline Phosphatase 60 U/L (40-130) 09/03/24 05:24 Total Protein 6.3 g/dL (6.6-8.7) L 09/03/24 05:24 Albumin 3.4 g/dL (3.5-5.2) L 09/03/24 05:24 Globulin 2.9 g/dL (1.3-4.6) 09/03/24 05:24 Urine Color Dark yellow (Yellow) A 09/03/24 08:11 Urine Appearance Clear (CLEAR) 09/03/24 08:11 Urine pH 5 (5-7) 09/03/24 08:11 Ur Specific [place] 1.020 (1.005-1.030) 09/03/24 08:11 Urine Protein 2+ (Negative) H 09/03/24 08:11 Urine Glucose (UA) 4+ (Normal) H 09/03/24 08:11 Urine Ketones Negative (Negative) 09/03/24 08:11 Urine Blood 2+ (Negative) H 09/03/24 08:11 Urine Nitrate Negative (Negative) 09/03/24 08:11 Urine Bilirubin Neg (Negative) 09/03/24 08:11 Urine Urobilinogen Neg mg/dL (Negative) 09/03/24 08:11 Ur Leukocyte Esterase 1+ (Negative) H 09/03/24 08:11 Urine RBC 0-2 /hpf (0-2) 09/03/24 08:11 Urine WBC 21-50 /hpf (0-5) H 09/03/24 08:11 Ur Squamous Epith Cells 0-5 /hpf (0-5) 09/03/24 08:11 Amorphous Sediment Not Reportable 09/03/24 08:11 Urine Bacteria None seen /hpf (NONE) 09/03/24 08:11 Hyaline Casts 26.88 /lpf 09/03/24 08:11 Urine Sperm 1+ /hpf 09/03/24 08:11 Serum Ketones Negative (Negative) 09/03/24 05:24 All radiology interpretation(s) finalized by discharge Discharge Plan Discharge Patient Disposition: Home Clinical Impression: Hypoglycemia due to insulin, Malaise and fatigue, Headache Condition: Stable Prescriptions: New ondansetron 4 mg tablet,disintegrating 4 mg PO Q6H PRN (Reason: nausea and vomiting) Qty: 20 0RF oxycodone 5 mg tablet 5 mg PO Q6H PRN (Reason: pain) Qty: 20 0RF No Action cholecalciferol (vitamin D3) 50 mcg (2,000 unit) capsule 50 mcg PO DAILY loratadine [Allergy Relief (loratadine)] 10 mg tablet 10 mg PO DAILY hydrochlorothiazide 25 mg tablet 25 mg PO DAILY Qty: 90 3RF tramadol 50 mg tablet 50 mg PO BID PRN (Reason: pain) Qty: 30 0RF (DME) Diabetic shoes with 3 sets of insoles See Rx Instructions .Route .MEDSUPPLY Qty: 1 0RF Rx Instructions: As directed by [facility] (DME) Non-articulating AFO to left See Rx Instructions .Route .MEDSUPPLY Qty: 1 0RF Rx Instructions: As directed by [facility] potassium chloride [Klor-Con 10] 10 mEq tablet extended release 10 meq PO BID Qty: 60 6RF (DME) 2L oxygen via CPAP See Rx Instructions .Route .MEDSUPPLY Qty: 1 0RF Rx Instructions: As directed (DME) Auto-titrating CPAP with mask and supplies with 2L O2 via nc See Rx Instructions .ROUTE .MEDSUPPLY Qty: 1 0RF Rx Instructions: Use while sleeping at least 4 hours per day. Settings: 6-16 cm H2O (DME) FreeStyle Brittany 2 [place] Misc See Rx Instructions .Route Qty: 1 0RF Rx Instructions: As directed aspirin 325 mg tablet,delayed release (DR/EC) 325 mg PO DAILY Qty: 90 1RF (DME) rigid support brace for left ankle See Rx Instructions .Route .MEDSUPPLY Qty: 1 0RF Rx Instructions: As directed - Use while ambulating icosapent ethyl [Vascepa] 1 gram capsule 2 g PO BID Qty: 360 3RF Rx Instructions: Take two capsules by mouth twice a day.f cyclobenzaprine 5 mg tablet See Rx Instructions .ROUTE .COMPLEX Qty: 90 0RF Dose Instruction: TAKE ONE TABLET BY MOUTH THREE TIMES DAILY NEEDED FOR MUSCLE SPASMS Rx Instructions: TAKE ONE TABLET BY MOUTH THREE TIMES DAILY NEEDED FOR MUSCLE SPASMS (DME) FreeStyle Brittany 2 Sensor Kit See Rx Instructions .ROUTE .COMPLEX Qty: 6 0RF Dose Instruction: USE DIRECTED Rx Instructions: USE DIRECTED fenofibrate 160 mg tablet See Rx Instructions .ROUTE .COMPLEX Qty: 60 0RF Dose Instruction: TAKE ONE TABLET BY MOUTH EVERY DAY Rx Instructions: TAKE ONE TABLET BY MOUTH EVERY DAY atorvastatin 80 mg tablet See Rx Instructions .ROUTE .COMPLEX Qty: 90 0RF Dose Instruction: TAKE ONE TABLET BY MOUTH DAILY Rx Instructions: TAKE ONE TABLET BY MOUTH DAILY Humulin R U-500 (Conc) Kwikpen 500 unit/mL (3 mL) insulin pen See Rx Instructions .ROUTE .COMPLEX Qty: 27 1RF Dose Instruction: INJECT 150 UNITS SUBCUTANEOUSLY THREE TIMES DAILY; BEFORE meals Rx Instructions: INJECT 150 UNITS SUBCUTANEOUSLY THREE TIMES DAILY; BEFORE meals metformin 1,000 mg tablet 1,000 mg PO BID Qty: 180 3RF amitriptyline 100 mg tablet 100 mg PO DAILY Qty: 30 6RF amlodipine 2.5 mg tablet 2.5 mg PO BID Qty: 60 6RF duloxetine 30 mg capsule,delayed release(DR/EC) 30 mg PO DAILY Qty: 30 6RF omeprazole 40 mg capsule,delayed release(DR/EC) 40 mg PO DAILY Qty: 30 6RF furosemide 40 mg tablet 80 mg PO BID Qty: 120 6RF Rx Instructions: Take two tabs PO BID. carvedilol 25 mg tablet 25 mg PO BID Qty: 180 3RF Rx Instructions: must administer with a meal/food allopurinol 300 mg tablet 300 mg PO DAILY Qty: 90 3RF ondansetron 8 mg tablet,disintegrating 8 mg PO Q6H Qty: 14 0RF Rx Instructions: Take 1/2-1 tab every 6 hours as needed for nausea and vomiting Discharge Orders: Discharge ED (Routine); Ordered 09/03/24 Ordered By: Yung Cortes Referrals: Patrick Martinez MD [Primary Care Provider] - 1 week Patient Instructions: Hypoglycemia in a Person with Diabetes (DC), What to Do if Your Blood Sugar is Low (ED) Activity Restrictions/Additional Instructions: Keep right leg elevated and limit activity for the next day or two. Watch for signs of infection. Stand Alone Forms: Work/School Release Print Language: Thai Coding Level of Care Code ED Geospatial Information Scientist for Chg Fwd Documented by User: Ilsa Conteh MD 09/03/24 15:27 HPI - Recheck/Abnormal Lab/Rx General: Chief Complaint: Recheck/Abnormal Lab/Rx Stated Complaint: LOW BLOOD SUGAR Time Seen by Provider: 09/03/24 04:08 Related Data Home Medications ?Medication ?Instructions ?Recorded ?Confirmed cholecalciferol (vitamin D3) 50 50 mcg PO DAILY 05/27/21 09/03/24 mcg (2,000 unit) capsule loratadine 10 mg tablet (Allergy 10 mg PO DAILY 05/27/21 09/03/24 Relief (loratadine)) Previous Rx's ?Medication ?Instructions ?Recorded flash glucose scanning reader #1 ea 03/18/22 (FreeStyle Brittany 2 [place]) aspirin 325 mg tablet,delayed 325 mg PO DAILY #90 tabs 07/07/22 release rigid support brace for left ankle #1 ea 01/16/23 Diabetic shoes with 3 sets of #1 ea 02/23/23 insoles Non-articulating AFO to left #1 ea 02/23/23 icosapent ethyl 1 gram capsule 2 g (2 x 1 gram) PO BID #360 caps 04/02/23 (Vascepa) potassium chloride 10 mEq 10 meq PO BID #60 tabs 12/25/23 tablet,extended release (Klor-Con) cyclobenzaprine 5 mg tablet See Rx Instructions .Route 12/31/23 .COMPLEX #90 tabs atorvastatin 80 mg tablet See Rx Instructions .Route 02/19/24 .COMPLEX #90 tabs fenofibrate 160 mg tablet See Rx Instructions .Route 02/19/24 .COMPLEX #60 tabs flash glucose sensor (FreeStyle #6 kits 02/19/24 Brittany 2 Sensor kit) 2L oxygen via CPAP #1 ea 02/26/24 insulin regular hum U-500 conc 500 See Rx Instructions .Route 03/21/24 unit/mL(3 mL) subcut pen (Humulin .COMPLEX #27 mL R U-500 (Conc) Insulin Kwikpen) metformin 1,000 mg tablet 1,000 mg PO BID #180 tabs 03/22/24 amitriptyline 100 mg tablet 100 mg PO DAILY #30 tabs 04/20/24 amlodipine 2.5 mg tablet 2.5 mg PO BID #60 tabs 04/20/24 hydrochlorothiazide 25 mg tablet 25 mg PO DAILY #90 tabs 04/22/24 duloxetine 30 mg capsule,delayed 30 mg PO DAILY #30 caps 06/20/24 release omeprazole 40 mg capsule,delayed 40 mg PO DAILY #30 caps 07/11/24 release furosemide 40 mg tablet 80 mg (2 x 40 mg) PO BID #120 tabs 07/19/24 Auto-titrating CPAP with mask and #1 ea 07/22/24 supplies with 2L O2 via nc tramadol 50 mg tablet 50 mg PO BID PRN pain #30 tabs 08/04/24 allopurinol 300 mg tablet 300 mg PO DAILY #90 tabs 08/18/24 carvedilol 25 mg tablet 25 mg PO BID #180 tabs 08/18/24 ondansetron 8 mg disintegrating 8 mg PO Q6H #14 tabs 09/02/24 tablet ondansetron 4 mg disintegrating 4 mg PO Q6H PRN nausea and 09/03/24 tablet vomiting #20 tabs oxycodone 5 mg tablet 5 mg PO Q6H PRN pain #20 tabs 09/03/24 Allergies Allergy/AdvReac Type Severity Reaction Status Date / Time Penicillins Allergy Mild ALGY-Rash Verified 05/18/24 15:20 PFSH ED PFSH: Medical History Obstructive sleep apnea CVA (cerebral vascular accident) Matos Radiata Right - 06/2022 Hypercholesteremia Shingles Hypertension Diabetes mellitus type 2 Surgical History Hx of cataract surgery History of lumbar surgery 03/2024 History of tonsillectomy History of appendectomy History of oral surgery H/O removal of cyst Family History Father Cancer Hypertension Gout Mother Diabetes Hypertension Thyroid disease Social History Smoking and tobacco/nicotine status: never used tobacco/nicotine Second hand smoke exposure: No Alcohol intake: current Alcohol intake frequency: holidays/special occasions only Alcohol type: beer Substance/Drug Use: never Adopted: No Caregiver/support person: No Lives independently: Yes Household members: spouse Housing: House Marital status: Number of children: 2 Highest education level completed: High School Graduate service: No Current occupational status: employed Course Vital Signs: Vital signs: Vital Signs Temperature 98.2 F 09/03/24 04:03 Pulse Rate 75 09/03/24 11:33 Respiratory Rate 17 09/03/24 04:12 Blood Pressure 171/109 09/03/24 11:33 Pulse Oximetry 100 09/03/24 11:33 Oxygen Delivery Me thod Room Air 09/03/24 06:22 MDM - Recheck/Abnormal Lab/Rx Medical Decision Making Lab work was obtained which was improved from previous time as far as creatinine. Patient ate and drink while he is here we had serial Accu-Cheks which were acceptable. Patient be discharged home. This is Dr. Conteh dictating. I assumed care of the patient at shift change. Although his blood sugar remained within an acceptable range he developed a very severe headache prior to discharge. He reports that the last time he had a had a headache like this he was diagnosed with a brain bleed. He and his are very concerned about this. I reviewed the patient's chart from today and from his earlier visit when his blood sugar was very high. He has had quite a significant swing and his sodium and also received glucagon this morning in the field which could certainly be causing headache. I did not find any focal neuro findings but he was clearly uncomfortable. He was given Tylenol. Zofran. IV fluids. Although it was difficult to estimate an actual change in the sodium because of the massive swing and the glucose as well I estimated that 2 L of normal saline would be safe to give him based on a corrected sodium. We also got a CT scan which was negative. His blood sugar remained good. He did have some mild nausea but was able to tolerate food and fluids. He also reported that his mother 2 days ago and the actual onset of his symptoms were while he was at the home making arrangements. He ended up missing the yesterday due to being ill. He did take 150 units of insulin and really has not eaten much since. He had an IO placed in his right proximal tibia by EMS as they were not able to establish an IV and glucagon had not done much for him. I remove the IV after injecting some lidocaine through it for pain management. In spite of this it was quite painful for the patient and fairly difficult to remove. A pressure dressing was placed and the patient was instructed to watch closely for signs of infection. He was able to ambulate in the ED. He was feeling better after our treatments and felt like he could go home. Lab Data 09/03/24 05:24 09/03/24 05:[address] 09/03/24 06:25 IMPRESSION: No acute intracranial abnormality. Laboratory Results WBC 13.63 10^3/uL (3.29-11.43) H 09/03/24 05:24 RBC 4.29 10^6/uL (3.85-5.65) 09/03/24 05:24 Hgb 12.60 g/dL (11.27-16.99) 09/03/24 05:24 Hct 38.5 % (37-53) 09/03/24 05:24 MCV 89.7 fl (82-101) 09/03/24 05:24 MCH 29.4 pg (27-33) 09/03/24 05:24 MCHC 32.7 g/dL (30-55) 09/03/24 05:24 RDW 14.6 % (12.1-15.1) 09/03/24 05:24 Plt Count 249 10^3/cmm (157-399) 09/03/24 05:24 MPV 9.3 fL (7.4-10.4) 09/03/24 05:24 Neut % (Auto) 77.6 % 09/03/24 05:24 Lymph % (Auto) 12.8 % 09/03/24 05:24 Casey % (Auto) 6.4 % 09/03/24 05:24 Eos % (Auto) 2.3 % 09/03/24 05:24 Baso % (Auto) 0.3 % 09/03/24 05:24 Neut # (Auto) 10.58 10^3/uL (1.8-7.7) H 09/03/24 05:24 Lymph # (Auto) 1.8 10^3/uL (0.8-4.8) 09/03/24 05:24 Casey # (Auto) 0.9 10^3/uL (0.2-0.9) 09/03/24 05:24 Eos # (Auto) 0.3 10^3/uL (0.0-0.8) 09/03/24 05:24 Baso # (Auto) 0.0 10^3/uL (0.0-0.1) 09/03/24 05:24 Nucleated RBC % (auto) 0 % 09/03/24 05:24 Nucleated RBCs # 0.0 /100WBC 09/03/24 05:24 Sodium 131 mmol/L (136-145) L 09/03/24 05:24 Potassium 3.4 mmol/L (3.5-5.1) L 09/03/24 05:24 Chloride 99 mmol/L (98-107) 09/03/24 05:24 Carbon Dioxide 20 mmol/L (22-29) L 09/03/24 05:24 Anion Gap 15.4 (5-19) 09/03/24 05:24 BUN 28 mg/dL (6-20) H 09/03/24 05:24 Creatinine 1.4 mg/dL (0.7-1.2) H 09/03/24 05:24 GFR Calculation 52.1 mL/min (90-130) L 09/03/24 05:24 Glucose 106 mg/dL (65-115) 09/03/24 05:24 Calculated Osmolality 278 mOsm/kg (285-295) L 09/03/24 05:24 Calcium 8.4 mg/dL (8.5-10.5) L 09/03/24 05:24 Total Bilirubin 0.2 mg/dL (0.15-1.2) 09/03/24 05:24 AST 27 U/L (0-40) 09/03/24 05:24 ALT 42 U/L (0-41) H 09/03/24 05:24 Alkaline Phosphatase 60 U/L (40-130) 09/03/24 05:24 Total Protein 6.3 g/dL (6.6-8.7) L 09/03/24 05:24 Albumin 3.4 g/dL (3.5-5.2) L 09/03/24 05:24 Globulin 2.9 g/dL (1.3-4.6) 09/03/24 05:24 Urine Color Dark yellow (Yellow) A 09/03/24 08:11 Urine Appearance Clear (CLEAR) 09/03/24 08:11 Urine pH 5 (5-7) 09/03/24 08:11 Ur Specific [place] 1.020 (1.005-1.030) 09/03/24 08:11 Urine Protein 2+ (Negative) H 09/03/24 08:11 Urine Glucose (UA) 4+ (Normal) H 09/03/24 08:11 Urine Ketones Negative (Negative) 09/03/24 08:11 Urine Blood 2+ (Negative) H 09/03/24 08:11 Urine Nitrate Negative (Negative) 09/03/24 08:11 Urine Bilirubin Neg (Negative) 09/03/24 08:11 Urine Urobilinogen Neg mg/dL (Negative) 09/03/24 08:11 Ur Leukocyte Esterase 1+ (Negative) H 09/03/24 08:11 Urine RBC 0-2 /hpf (0-2) 09/03/24 08:11 Urine WBC 21-50 /hpf (0-5) H 09/03/24 08:11 Ur Squamous Epith Cells 0-5 /hpf (0-5) 09/03/24 08:11 Amorphous Sediment Not Reportable 09/03/24 08:11 Urine Bacteria None seen /hpf (NONE) 09/03/24 08:11 Hyaline Casts 26.88 /lpf 09/03/24 08:11 Urine Sperm 1+ /hpf 09/03/24 08:11 Serum Ketones Negative (Negative) 09/03/24 05:24 Discharge Plan Discharge Patient Disposition: Home Clinical Impression: Hypoglycemia due to insulin, Malaise and fatigue, Headache Condition: Stable Prescriptions: New ondansetron 4 mg tablet,disintegrating 4 mg PO Q6H PRN (Reason: nausea and vomiting) Qty: 20 0RF oxycodone 5 mg tablet 5 mg PO Q6H PRN (Reason: pain) Qty: 20 0RF No Action cholecalciferol (vitamin D3) 50 mcg (2,000 unit) capsule 50 mcg PO DAILY loratadine [Allergy Relief (loratadine)] 10 mg tablet 10 mg PO DAILY hydrochlorothiazide 25 mg tablet 25 mg PO DAILY Qty: 90 3RF tramadol 50 mg tablet 50 mg PO BID PRN (Reason: pain) Qty: 30 0RF (DME) Diabetic shoes with 3 sets of insoles See Rx Instructions .Route .MEDSUPPLY Qty: 1 0RF Rx Instructions: As directed by [facility] (DME) Non-articulating AFO to left See Rx Instructions .Route .MEDSUPPLY Qty: 1 0RF Rx Instructions: As directed by [facility] potassium chloride [Klor-Con 10] 10 mEq tablet extended release 10 meq PO BID Qty: 60 6RF (DME) 2L oxygen via CPAP See Rx Instructions .Route .MEDSUPPLY Qty: 1 0RF Rx Instructions: As directed (DME) Auto-titrating CPAP with mask and supplies with 2L O2 via nc See Rx Instructions .ROUTE .MEDSUPPLY Qty: 1 0RF Rx Instructions: Use while sleeping at least 4 hours per day. Settings: 6-16 cm H2O (DME) FreeStyle Brittany 2 [place] Misc See Rx Instructions .Route Qty: 1 0RF Rx Instructions: As directed aspirin 325 mg tablet,delayed release (DR/EC) 325 mg PO DAILY Qty: 90 1RF (DME) rigid support brace for left ankle See Rx Instructions .Route .MEDSUPPLY Qty: 1 0RF Rx Instructions: As directed - Use while ambulating icosapent ethyl [Vascepa] 1 gram capsule 2 g PO BID Qty: 360 3RF Rx Instructions: Take two capsules by mouth twice a day.f cyclobenzaprine 5 mg tablet See Rx Instructions .ROUTE .COMPLEX Qty: 90 0RF Dose Instruction: TAKE ONE TABLET BY MOUTH THREE TIMES DAILY NEEDED FOR MUSCLE SPASMS Rx Instructions: TAKE ONE TABLET BY MOUTH THREE TIMES DAILY NEEDED FOR MUSCLE SPASMS (DME) FreeStyle Brittany 2 Sensor Kit See Rx Instructions .ROUTE .COMPLEX Qty: 6 0RF Dose Instruction: USE DIRECTED Rx Instructions: USE DIRECTED fenofibrate 160 mg tablet See Rx Instructions .ROUTE .COMPLEX Qty: 60 0RF Dose Instruction: TAKE ONE TABLET BY MOUTH EVERY DAY Rx Instructions: TAKE ONE TABLET BY MOUTH EVERY DAY atorvastatin 80 mg tablet See Rx Instructions .ROUTE .COMPLEX Qty: 90 0RF Dose Instruction: TAKE ONE TABLET BY MOUTH DAILY Rx Instructions: TAKE ONE TABLET BY MOUTH DAILY Humulin R U-500 (Conc) Kwikpen 500 unit/mL (3 mL) insulin pen See Rx Instructions .ROUTE .COMPLEX Qty: 27 1RF Dose Instruction: INJECT 150 UNITS SUBCUTANEOUSLY THREE TIMES DAILY; BEFORE meals Rx Instructions: INJECT 150 UNITS SUBCUTANEOUSLY THREE TIMES DAILY; BEFORE meals metformin 1,000 mg tablet 1,000 mg PO BID Qty: 180 3RF amitriptyline 100 mg tablet 100 mg PO DAILY Qty: 30 6RF amlodipine 2.5 mg tablet 2.5 mg PO BID Qty: 60 6RF duloxetine 30 mg capsule,delayed release(DR/EC) 30 mg PO DAILY Qty: 30 6RF omeprazole 40 mg capsule,delayed release(DR/EC) 40 mg PO DAILY Qty: 30 6RF furosemide 40 mg tablet 80 mg PO BID Qty: 120 6RF Rx Instructions: Take two tabs PO BID. carvedilol 25 mg tablet 25 mg PO BID Qty: 180 3RF Rx Instructions: must administer with a meal/food allopurinol 300 mg tablet 300 mg PO DAILY Qty: 90 3RF ondansetron 8 mg tablet,disintegrating 8 mg PO Q6H Qty: 14 0RF Rx Instructions: Take 1/2-1 tab every 6 hours as needed for nausea and vomiting Discharge Orders: Discharge ED (Routine); Ordered 09/03/24 Ordered By: Yung Cortes Referrals: Patrick Martinez MD [Primary Care Provider] - 1 week Patient Instructions: Hypoglycemia in a Person with Diabetes (DC), What to Do if Your Blood Sugar is Low (ED) Activity Restrictions/Additional Instructions: Keep right leg elevated and limit activity for the next day or two. Watch for signs of infection. 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
[2024-09-03 05:33] LABS: Basophils % 0.3 %; Eosinophils # 0.3 10^3/uL (0.0-0.8); Eosinophils % 2.3 %; Hematocrit 38.5 % (37-53); Lymphocytes # 1.8 10^3/uL (0.8-4.8); Lymphocytes % 12.8 %; Mean Corpuscular HGB Conc 32.7 g/dL (30-55); Mean Corpuscular Hemoglobin 29.4 pg (27-33); Mean Corpuscular Volume 89.7 fl (82-101); Mean Platelet Volume 9.3 fL (7.4-10.4); Monocytes # 0.9 10^3/uL (0.2-0.9); Monocytes % 6.4 %; Neutrophils # 10.58 10^3/uL (1.8-7.7); Neutrophils % 77.6 %; Nucleated Red Blood Cells % 0 %; Platelet Count 249 10^3/cmm (157-399); Red Blood Count 4.29 10^6/uL (3.85-5.65); Red Cell Distribution Width 14.6 % (12.1-15.1); White Blood Count 13.63 10^3/uL (3.29-11.43)
[2024-09-03 05:45] LABS: Albumin Level 3.4 g/dL (3.5-5.2); Alkaline Phosphatase 60 U/L (40-130); Blood Urea Nitrogen 28 mg/dL (6-20); Calcium 8.4 mg/dL (8.5-10.5); Carbon Dioxide 20 mmol/L (22-29); Chloride 99 mmol/L (98-107); Creatinine Clr Calc Pharmacy 93.6723; Globulin 2.9 g/dL (1.3-4.6); Glomerular Filtration Rate 52.1 mL/min (90-130); Glucose 106 mg/dL (65-115); Osmolality Calculated 278 mOsm/kg (285-295); Sodium 131 mmol/L (136-145); Total Bilirubin 0.2 mg/dL (0.15-1.2); Total Protein 6.3 g/dL (6.6-8.7)
[2024-09-03 05:47] LABS: Anion Gap 15.4 (5-19); Potassium 3.4 mmol/L (3.5-5.1)
--- NOTE | 2024-09-03 06:25 | CTR_ITS ---
PROCEDURE INFORMATION: Exam: CT Head Without Contrast Exam date and time: 09/03/2024 6:48 AM Age: 59 years old Clinical indication: Pain; Headache; PORTILLO with severe weakness. ; Additional info: Severe headache, h/o brain bleed TECHNIQUE: Imaging protocol: Computed tomography of the head without contrast. Radiation optimization: All CT scans at this facility use at least one of these dose optimization techniques: automated exposure control; mA and/or kV adjustment per patient size (includes targeted exams where dose is matched to clinical indication); or iterative reconstruction. 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 Cerebral ventricles: No ventriculomegaly. Paranasal sinuses: Visualized sinuses are unremarkable. No fluid levels. Mastoid air cells: Visualized mastoid air cells are well aerated. Bones: Unremarkable. No acute fracture. Soft tissues: Unremarkable. CT/CT head wo con* [id number] IMPRESSION: No acute intracranial abnormality.
[2024-09-03 06:43] LABS: Ketone (Acetest) Serum Negative (Negative)
--- NOTE | 2024-09-03 06:52 | PC.NURSE ---
this nurse assumed care @0652; discharge delayed d/t pt having new complaint at time of discharge. new orders and medications placed at that time.
--- NOTE | 2024-09-03 07:00 | PC.NURSE ---
glucose via FS 114.
[2024-09-03 07:02] LABS: Alanine Aminotransferase 42 U/L (0-41); Aspartate Amino Transferase 27 U/L (0-40)
[2024-09-03] MEDS: sodium chloride 0.9% 1,000 ML 999 ML IV ×2 (07:13→10:05)
[2024-09-03] MEDS: ondansetron 2 mg/ML SDV 2 mL 4 MG IVP (07:13)
[2024-09-03] MEDS: acetaminophen 500 mg Tablet 1000 MG PO (07:13)
--- NOTE | 2024-09-03 07:53 | PC.NURSE ---
glucose via FS 124; educated pt again on need for urine sample
[2024-09-03 08:16] LABS: Add Urine Microscopic? NO
[2024-09-03 08:18] LABS: Bacteria Urine None Seen /hpf; Hyaline Casts Urine 26.88 /lpf; RBC Urine 0-2 /hpf (0-2); Squamous Epithelial Cell Urine 0-5 /hpf (0-5); WBC Urine 21-50 /hpf (0-5)
[2024-09-03 08:23] LABS: Bilirubin Urine Neg (Negative); Blood Urine 2+ (Negative); Glucose Urine UA 4+ (Normal); Ketones Urine Negative (Negative); Leukocyte Esterase Urine 1+ (Negative); Nitrate Urine Negative (Negative); Protein Urine 2+ (Negative); Urine Appearance Clear (CLEAR); Urine Color Dark Yellow (Yellow); Urobilinogen Urine Neg (Negative); pH Urine 5 (5-7)
[2024-09-03 08:24] LABS: Charge for UA Resulting for Rev
[2024-09-03 08:33] LABS: Add Urine Culture? Yes; Sperm Urine 1+ /hpf; UA Slide Review UA Slide Review Perf
--- NOTE | 2024-09-03 09:42 | PC.NURSE ---
glucose 144 via FS.
[2024-09-03] MEDS: lidocaine 2% INJ 20 mL XX (10:13)
--- NOTE | 2024-09-03 10:20 | PC.NURSE ---
IO removed per Dr. Conteh, manual pressure applied, then 2x2 and SALTY bandage applied.
[2024-09-05 13:42] LABS: Glucose Point of Care 124 mg/dL (70-110)
[2024-09-05 13:42] LABS: Glucose Point of Care 114 mg/dL (70-110)
[2024-09-05 13:42] LABS: Glucose Point of Care 143 mg/dL (70-110)
[2024-09-05 13:42] LABS: Glucose Point of Care 135 mg/dL (70-110)
[2024-09-05 13:42] LABS: Glucose Point of Care 134 mg/dL (70-110)
[2024-09-05 13:42] LABS: Glucose Point of Care 155 mg/dL (70-110)
== END 2024-09-03 11:33 | disposition home or self-care (01) ==
PROVIDERS: Emergency Medicine; Emergency Provider Emergency Medicine; PCP Family Medicine
DX: E11.649 Type 2 diabetes mellitus with hypoglycemia without coma (principal); Z79.4 Long term (current) use of insulin; I10 Essential (primary) hypertension; Z86.73 Personal history of transient ischemic attack (TIA), and cerebral infarction without residual deficits; R53.81 Other malaise; R53.83 Other fatigue; R51.9 Headache, unspecified; Z79.82 Long term (current) use of aspirin; Z79.84 Long term (current) use of oral hypoglycemic drugs
CPT/HCPCS: 36415; 36416; 70450; 80053; 81003; 82009; 82962; 85025; 87086; 96361; 96374; 99285; J2405; J7030; J9999

== ENCOUNTER 2024-09-12 15:59 | Outpatient (CLI) | payer OTHER, SELFPAY ==
[2024-09-12 17:46] LABS: Blood Urea Nitrogen 33 mg/dL (6-20); Calcium 9.3 mg/dL (8.5-10.5); Carbon Dioxide 24 mmol/L (22-29); Chloride 95 mmol/L (98-107); Glomerular Filtration Rate 52.1 mL/min (90-130); Glucose 329 mg/dL (65-115); Osmolality Calculated 296 mOsm/kg (285-295); Sodium 133 mmol/L (136-145)
[2024-09-12 18:26] LABS: Anion Gap 18.7 (5-19); Potassium 4.7 mmol/L (3.5-5.1)
== END 2024-09-12 16:00 | disposition home or self-care (01) ==
LOC: LAB 16:02
PROVIDERS: PCP Family Medicine; Visit Provider Internal Medicine Cardiovascular Disease
DX: I10 Essential (primary) hypertension (principal); N28.9 Disorder of kidney and ureter, unspecified
CPT/HCPCS: 36415; 80048

== ENCOUNTER → 2025-01-09 14:42 | Outpatient (BNVA) | payer OTHER, SELFPAY | PROVIDERS: PCP Family Medicine; Visit Provider Family Medicine | DX: Z00.00 Encounter for general adult medical examination without abnormal findings (principal); E55.9 Vitamin D deficiency, unspecified; Z51.81 Encounter for therapeutic drug level monitoring; E11.9 Type 2 diabetes mellitus without complications; Z12.5 Encounter for screening for malignant neoplasm of prostate; E53.8 Deficiency of other specified B group vitamins | CPT/HCPCS: 80053; 82306; 82607; 83036; 84153; 85025 ==

== ENCOUNTER 2025-01-17 06:59 | Outpatient (CLI) | payer OTHER, SELFPAY ==
--- NOTE | 2025-01-17 07:15 | MR_ITS ---
WS: [id number] MRI HEAD WITH CONTRAST TECHNIQUE: Sagittal T1, T2 axial, T2 axial FLAIR, axial susceptibility weighted imaging, axial diffusion weighted images, and coronal T2 images were obtained. Pre and post-T1 axial and post T1 coronal images. ADC and FSPGR images. CLINICAL INFORMATION: Right abducens weakness, vertigo COMPARISON: MRI 09/15/[address] 09/03/2024 FINDINGS: No evidence of restricted diffusion to suggest acute ischemia. Ventricular system and basal cisterns are patent. Mild small vessel changes with mild parenchymal volume loss stable since 2022. Chronic infarct in the RIGHT owens radiata unchanged. Normal posterior fossa. Normal vascular flow voids at the skull base. No extra-axial fluid collections. No evidence of mass or mass effect. Paranasal sinuses and mastoid air cells are well aerated. Normal posterior nasopharynx. No hemosiderin on the susceptibly weighted images. Normal optic chiasm and pituitary infundibulum. Normal cavernous sinuses and Meckel's cave. No abnormal gadolinium enhancement. MR/MR head wo/w con [id number] IMPRESSION: 1. No evidence of restricted diffusion to suggest acute ischemia. 2. Mild small vessel changes with mild parenchymal volume loss stable since . 3. Stable chronic infarct RIGHT owens radiata. 4. No abnormal gadolinium enhancement. 5. No other acute findings.
[2025-01-17] MEDS: gadobenate dimeglumine 20 mL vial IV (07:51)
== END 2025-01-17 07:00 | disposition home or self-care (01) ==
LOC: RAD 06:59
PROVIDERS: PCP Family Medicine; Visit Provider Family Medicine
DX: R42 Dizziness and giddiness (principal); I67.89 Other cerebrovascular disease; I63.81 Other cerebral infarction due to occlusion or stenosis of small artery; S04 Injury of cranial nerve; X58.XXXA Exposure to other specified factors, initial encounter
CPT/HCPCS: 70553

== ENCOUNTER → 2025-05-08 13:03 | Outpatient (BNVA) | payer OTHER, SELFPAY | PROVIDERS: PCP Family Medicine; Visit Provider Family Medicine | DX: Z13.6 Encounter for screening for cardiovascular disorders (principal); E11.9 Type 2 diabetes mellitus without complications; R25.2 Cramp and spasm; E55.9 Vitamin D deficiency, unspecified | CPT/HCPCS: 80053; 80061; 82306; 83036; 83721; 83735; 85025 ==

== ENCOUNTER 2025-05-18 21:27 | Outpatient (CLI) | payer OTHER, SELFPAY ==
[2025-05-18 22:47] LABS: C.Diff PCR (Lab) NEGATIVE (Negative)
== END 2025-05-18 21:28 | disposition home or self-care (01) ==
LOC: ER 21:30
PROVIDERS: PCP Family Medicine; Visit Provider Family Medicine
DX: R19.7 Diarrhea, unspecified (principal)
CPT/HCPCS: 87045; 87427; 87449; 87493